=== PATIENT | female | born 1990 | race Two or more races ===

== ENCOUNTER 2017-05-10 17:04 | Emergency (ER) | payer SELFPAY ==
--- NOTE | 2017-05-10 17:36 | EDM.PDOC ---
ED HPI GENERAL MEDICAL PROBLEM - General Chief Complaint: Respiratory Problem Stated Complaint: SOB Time Seen by Provider: 05/10/17 17:27 - History of Present Illness INITIAL COMMENTS - FREE TEXT/NARRATIVE: 27-year-old female presents emergency room generally feeling poor. She has had really severe nausea and vomiting for the last 2-3 days she has developed lower rib discomfort on the left side especially that makes it painful to take a deep breath and. She's had occasional loose stool. She's had no burning or frequency with urination with vomiting she's developed significant neck discomfort and a headache. She's been chilled but they have not had a a thermometer at home. The patient is been unable unable to sleep the last 2 nights because of nausea and vomiting. Abdominal Pain Score (Numeric/FACES): 8 - Related Data Allergies Allergy/AdvReac Type Severity Reaction Status Date / Time No Known Allergies Allergy Verified 05/10/17 17:23 Home Meds: Home Meds Ondansetron [Zofran ODT] 4 mg PO Q6H PRN #15 tab.dis 05/10/17 [Rx] Potassium Chloride [Klor-Con M20] 20 meq PO Q8H #11 tab.er 05/10/17 [Rx] ED ROS GENERAL - Review of Systems Review Of Systems: See Below Constitutional: Reports: Fever, Chills, Decreased Appetite. Denies: Diaphoresis HEENT: Reports: No Symptoms Respiratory: Reports: No Symptoms, Pleuritic Chest Pain (Mostly on the left lower rib margin otherwise deep breathing it hasn't caused any chest pain just worsening abdominal pain) Cardiovascular: Reports: No Symptoms GI/Abdominal: Reports: Abdominal Pain, Diarrhea, Nausea, Vomiting : Reports: No Symptoms, Other (Is having her period now) Musculoskeletal: Reports: Other (He is generally achy all over) Skin: Reports: No Symptoms Neurological: Reports: No Symptoms Psychiatric: Reports: No Symptoms ED EXAM, GENERAL - Physical Exam Exam: See Below Exam Limited By: No Limitations General Appearance: Alert, Anxious Eye Exam: Bilateral Eye: Normal Inspection Ears: Normal External Exam, Normal Canal, Hearing Grossly Normal, Normal TMs Nose: Normal Inspection, Normal Mucosa, No Blood Throat/Mouth: Normal Inspection, Normal Lips, Normal Teeth, Normal Gums, Normal Oropharynx, Normal Voice, No Airway Compromise, Other (Semi-dry mucous membranes ) Head: Atraumatic, Normocephalic Neck: Tender Lateral, Other (She really does not have any nuchal rigidity has significant muscle tightness in the area bilaterally extending into her shoulders and up into the base of her skull). No: Lymphadenopathy (L), Lymphadenopathy (R), Tender Midline, Thyromegaly Respiratory/Chest: No Respiratory Distress, Lungs Clear, Normal Breath Sounds Cardiovascular: Regular Rate, Rhythm, No Edema, No Murmur GI/Abdominal: Normal Bowel Sounds, Soft, Other (Marked abdominal wall musculature discomfort especially on the left side no tenderness with deep palpation no rigidity rebound or guarding noted) Back Exam: Normal Inspection. No: CVA Tenderness (L), CVA Tenderness (R), Paraspinal Tenderness, Vertebral Tenderness Extremities: Normal Inspection, No Pedal Edema Psychiatric: Anxious (Stated improve after control of her nausea vomiting and IV fluids and Toradol) Skin Exam: Warm, Dry, Intact Course - Vital Signs Last Recorded V/S: Last Vital Signs Temp 36.5 C 05/10/17 17: Pulse 90 05/10/17 17:18 Resp 26 H 05/10/17 17:18 BP 113/79 05/10/17 17:18 Pulse Ox 100 05/10/17 17:18 - Orders/Labs/Meds Labs: Laboratory Tests 05/10/17 05/10/17 Range/Units 17:50 17:50 WBC 4.19 (3.98-10.04) K/mm3 RBC 4.76 (3.98-5.22) M/mm3 Hgb 12.5 (11.2-15.7) gm/L Hct 38.0 (34.1-44.9) % MCV 79.8 (79.4-94.8) fl MCH 26.3 (25.6-32.2) pg MCHC 32.9 (32.2-35.5) g/dl RDW Std Deviation 41.0 (36.4-46.3) fL Plt Count 176 L (182-369) K/mm3 MPV 9.7 (9.4-12.3) fl Neutrophils % (Manual) 41 (40-60) % Band Neutrophils % 0 (0-10) % Lymphocytes % (Manual) 55 H (20-40) % Atypical Lymphs % 0 % Monocytes % (Manual) 3 (2-10) % Eosinophils % (Manual) 1 (0.7-5.8) % Basophils % (Manual) 0 L (0.1-1.2) Platelet Estimate Adequate Plt Morphology Comment Normal RBC Morph Comment Normal Sodium 141 (136-145) mEq/L Potassium 2.9 L (3.5-5.1) mEq/L Chloride 100 (98-107) mEq/L Carbon Dioxide 26 (21-32) mEq/L Anion Gap 17.9 H (5-15) BUN 6 L (7-18) mg/dL Creatinine 0.6 (0.55-1.02) mg/dL Est Cr Clr Drug Dosing 119.47 mL/min Estimated GFR (MDRD) > 60 (>60) mL/min BUN/Creatinine Ratio 10.0 L (14-18) Glucose 102 (74-106) mg/dL Calcium 9.2 (8.5-10.1) mg/dL Total Bilirubin 0.3 (0.2-1.0) mg/dL AST 35 (15-37) U/L ALT 54 (14-59) U/L Alkaline Phosphatase 58 (46-116) U/L Total Protein 8.2 (6.4-8.2) g/dl Albumin 3.8 (3.4-5.0) g/dl Globulin 4.4 gm/dL Albumin/Globulin Ratio 0.9 L (1-2) Lipase 131 (73-393) U/L Meds: Medications Discontinued Medications Generic Name Dose Route Start Last Admin Trade Name Freq PRN Reason Stop Dose Admin Lactated Ringer's 1,000 mls @ 999 mls/hr 05/10/17 17:37 05/10/17 17:51 Ringers, Lactated IV 05/10/17 18:37 999 mls/hr .BOLUS ONE Administration Lactated Ringer's 1,000 mls @ 999 mls/hr 05/10/17 17:37 Ringers, Lactated IV 05/10/17 18:37 .BOLUS ONE Lactated Ringer's Confirm 05/10/17 19:13 05/10/17 19:44 Ringers, Lactated Administered 05/10/17 19:14 Not Given Dose 1,000 mls @ as directed .ROUTE .STK-MED ONE Lactated Ringer's 1,000 mls @ 1,000 mls/hr 05/10/17 19:11 05/10/17 19:14 Ringers, Lactated IV 05/10/17 20:10 1,000 mls/hr .BOLUS ONE Administration Ketorolac Tromethamine 30 mg 05/10/17 19:19 05/10/17 19:39 Toradol IVPUSH 05/10/17 19:20 30 mg ONETIME ONE Administration Ondansetron HCl 4 mg 05/10/17 17:37 Zofran IVPUSH 05/10/17 17:38 ONETIME ONE Ondansetron HCl 4 mg 05/10/17 17:38 05/10/17 17:39 Zofran IVPUSH 05/10/17 17:39 Not Given ONETIME ONE Ondansetron HCl 4 mg 05/10/17 18:11 05/10/17 18:13 Zofran IVPUSH 05/10/17 18:12 4 mg ONETIME ONE Administration Ondansetron HCl 4 mg 05/10/17 18:11 05/10/17 18:14 Zofran IVPUSH 05/10/17 18:12 Not Given ONETIME ONE Potassium Chloride 40 meq 05/10/17 18:24 05/10/17 18:30 Klor-Con M20 PO 05/10/17 18:25 40 meq ONETIME ONE Administration - Re-Assessments/Exams Free Text/Narrative Re-Assessment/Exam: 05/10/17 19:17 His chemistries CBC reviewed this looks very viral. However cannot completely exclude the possibility of meningitis offered LP this is declined at this point. For her discomfort we'll give Toradol and she is getting her second liter of fluids started now. Awaiting urine and hCG she has muscle tightness around her neck and into her shoulders full ability to flex her neck is somewhat limited however it is not worsened by her in a full sitting position with her legs up. 05/10/17 20:43 Patient has had the Toradol and for about 40 minutes she's doing much better she still has some discomfort around her neck but this is better she is breathing much easier and her discomfort by large is significantly better. Her abdominal pain is basically completely resolved. she'll be discharged with ibuprofen instructions prescription for Toradol and a prescription for potassium chloride 05/10/17 20:51 Patient did voice some but there was lots of blood and therefore because of her periods and this was never sent to the lab. 05/10/17 20:55 Departure - Departure Time of Disposition: 20:49 Disposition: Home, Self-Care 01 Clinical Impression: Gastroenteritis, Dehydration, Hypokalemia - Discharge Information Prescriptions: Ondansetron [Zofran ODT] 4 mg PO Q6H PRN #15 tab.dis PRN Reason: Nausea/Vomiting Potassium Chloride [Klor-Con M20] 20 meq PO Q8H #11 tab.er Referrals: PCP,Unobtain [Ordering Only Provider] - Forms: ED Department Discharge Additional Instructions: Return to the emergency room with any questions problems or not significantly doing better in 24 hours. Use ibuprofen for aches and pains take with food use 600-800 mg 3 times daily. He been started on Zofran is to control the nausea and vomiting use this at least one every 6 hours for the next 24 hours and then as needed. You been started on potassium is your potassium is very low take 2 pills this evening around 10:00 and then one pill every 8 hours for the next 3 days. Follow-up in the Hospital clinic if needed and to establish with a regular provider
[2017-05-10] MEDS ORDERED: Ondansetron 4 MG/2 ML SDV IVPUSH ONE ×4 (17:37→18:11)
[2017-05-10] MEDS ORDERED: Lactated Ringers 1,000 ML IV ONE ×3 (17:37→19:11)
[2017-05-10] MEDS ORDERED: Potassium Chloride 20 MEQ Tab.ER PO ONE (18:24)
[2017-05-10] MEDS ORDERED: Lactated Ringers 1,000 ML ONE (19:13)
[2017-05-10] MEDS ORDERED: Ketorolac 30 MG/ML SDV IVPUSH ONE (19:19)
== END 2017-05-10 21:10 | disposition home or self-care (01) ==
LOC: JD.ED 17:04
DX: K52.9 Noninfective gastroenteritis and colitis, unspecified (principal); E86.0 Dehydration; E87.6 Hypokalemia
CPT/HCPCS: 36415; 80053; 83690; 85025; 96361; 96374; 96375; 99285; A9270; J1885; J2405; J7120; 99284

== ENCOUNTER 2017-05-11 07:47 | Emergency (ER) | payer SELFPAY ==
--- NOTE | 2017-05-11 08:06 | EDM.PDOC ---
ED HPI GENERAL MEDICAL PROBLEM - General Chief Complaint: Headache Stated Complaint: UNABLE TO WALK OR TALK Time Seen by Provider: 05/11/17 08:06 Source of Information: Reports: Patient, RN Notes Reviewed - History of Present Illness INITIAL COMMENTS - FREE TEXT/NARRATIVE: 27-year-old female who's been brought in by mother with concern about headache, generalized weakness, speech difficulty. Upon my walking into the room the patient is not verbalizing at all so history is extremely difficult. Not clear at this time when her speech difficulty started. She was evaluated here in the ED last evening for severe headache, neck and back discomfort. Refer to that record for details of that visit. Labs at that time were relatively normal. It appears that neuro status was normal at that time. I see no documentation of speech difficulty last evening. She had been ill about 3-4 days ago with severe vomiting and diarrhea. When evaluated last evening her potassium was very low at 2.9. she was treated with IV fluids, oral potassium and other medications for headache. 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 Headache Pain Score (Numeric/FACES): 10 - Related Data Allergies Allergy/AdvReac Type Severity Reaction Status Date / Time No Known Allergies Allergy Verified 05/11/17 08:02 Home Meds: Home Meds Ondansetron [Zofran ODT] 4 mg PO Q6H PRN #15 tab.dis 05/10/17 [Rx] Potassium Chloride [Klor-Con M20] 20 meq PO Q8H #11 tab.er 05/10/17 [Rx] Past Medical History Gastrointestinal History: Reports: Gastritis, GERD Neurological History: Reports: Headaches, Chronic, Migraines - Infectious Disease History Infectious Disease History: Reports: Chicken Pox, Measles Social & Family History - Tobacco Use Smoking Status *Q: Never Smoker - Caffeine Use Caffeine Use: Reports: None - Recreational Drug Use Recreational Drug Use: No ED ROS GENERAL - Review of Systems Review Of Systems: Unable To Obtain (The information I am getting is from her mother who is able to inform me of past symptoms but difficult to get detailed information on current symptoms) Constitutional: Denies: Fever, Chills, Diaphoresis Cardiovascular: Denies: Chest Pain GI/Abdominal: Reports: Abdominal Pain (Gone), Diarrhea (Patient had severe vomiting 2 and 3 days ago patient severe diarrhea 2 and 3 days ago), Nausea, Vomiting Skin: Reports: No Symptoms Neurological: Reports: Headache, Difficulty Walking (Generalized weakness difficulty walking this morning), Weakness, Change in Speech (Difficulty speaking this morning) - Physical Exam Exam: See Below General Appearance: Anxious (Patient does appear somewhat anxious), Other ( Patient is awake, not verbalizing at time of my initial exam) Eye Exam: Bilateral Eye: PERRL Ears: Normal External Exam Nose: Normal Inspection Throat/Mouth: Normal Inspection, Normal Oropharynx, Other (No swelling, no intraoral injury present) Head Exam: Atraumatic. No: Scalp Swelling, Facial Abrasions, Facial Swelling Neck: Supple, Full Range of Motion. No: Lymphadenopathy (L), Lymphadenopathy (R ) Respiratory/Chest: No Respiratory Distress, Lungs Clear, Normal Breath Sounds Cardiovascular: Regular Rate, Rhythm GI/Abdominal: Soft, Non-Tender. No: Guarding, Rebound Neuro Exam (Abbreviated): Slow to Respond, Other (Patient is awake, aware, she does squeeze fingers bilateral on command, she does speak but words very soft, mostly not recognizable time of my initial exam, no facial droop, hand grasp is weak bilateral but symmetric) Extremities: Normal Inspection, Normal Range of Motion Psychiatric: Flat Affect Skin Exam: Warm, Dry, Normal Color, No Rash Course - Vital Signs Last Recorded V/S: Last Vital Signs Temp 97.9 F 05/11/17 07:57 Pulse 86 05/11/17 07:57 Resp 16 05/11/17 07:57 BP 121/86 05/11/17 07:57 Pulse Ox 96 05/11/17 07:57 - Orders/Labs/Meds Labs: Laboratory Tests 05/11/17 05/11/17 05/11/17 Range/Units 08:00 08:00 08:00 WBC 3.37 L (3.98-10.04) K/mm3 RBC 4.44 (3.98-5.22) M/mm3 Hgb 11.7 (11.2-15.7) gm/L Hct 36.8 (34.1-44.9) % MCV 82.9 (79.4-94.8) fl MCH 26.4 (25.6-32.2) pg MCHC 31.8 L (32.2-35.5) g/dl RDW Std Deviation 44.1 (36.4-46.3) fL Plt Count 170 L (182-369) K/mm3 MPV 10.1 (9.4-12.3) fl Neut % (Auto) 28.2 L (34.0-71.1) % Lymph % (Auto) 55.2 H (19.3-51.7) % [place] % (Auto) 14.5 H (4.7-12.5) % Eos % (Auto) 0.6 L (0.7-5.8) Baso % (Auto) 1.5 H (0.1-1.2) % Neut # (Auto) 0.95 L (1.56-6.13) K/mm3 Lymph # (Auto) 1.86 (1.18-3.74) K/mm3 [place] # (Auto) 0.49 H (0.24-0.36) K/mm3 Eos # (Auto) 0.02 L (0.04-0.36) K/mm3 Baso # (Auto) 0.05 (0.01-0.08) K/mm3 Manual Slide Review Normal smear Sodium 142 (136-145) mEq/L Potassium 3.9 (3.5-5.1) mEq/L Chloride 103 (98-107) mEq/L Carbon Dioxide 26 (21-32) mEq/L Anion Gap 16.9 H (5-15) BUN 5 L (7-18) mg/dL Creatinine 0.6 (0.55-1.02) mg/dL Est Cr Clr Drug Dosing 119.47 mL/min Estimated GFR (MDRD) > 60 (>60) mL/min BUN/Creatinine Ratio 8.3 L (14-18) Glucose 88 (74-106) mg/dL Calcium 8.9 (8.5-10.1) mg/dL Total Bilirubin 0.3 (0.2-1.0) mg/dL AST 30 (15-37) U/L ALT 44 (14-59) U/L Alkaline Phosphatase 53 (46-116) U/L C-Reactive Protein 1.0 (<1.0) mg/dL Total Protein 7.8 (6.4-8.2) g/dl Albumin 3.6 (3.4-5.0) g/dl Globulin 4.2 gm/dL Albumin/Globulin Ratio 0.9 L (1-2) Meds: Medications Discontinued Medications Generic Name Dose Route Start Last Admin Trade Name Gracie PRN Reason Stop Dose Admin Acetaminophen 975 mg 05/11/17 09:34 05/11/17 09:48 Tylenol PO 05/11/17 09:35 975 mg NOW ONE Administration Hydromorphone HCl 0.5 mg 05/11/17 08:29 05/11/17 08:37 Dilaudid IVPUSH 05/11/17 08:30 0.5 mg ONETIME ONE Administration Sodium Chloride 500 mls @ 999 mls/hr 05/11/17 08:27 05/11/17 08:48 Normal Saline IV 05/11/17 08:57 999 mls/hr .BOLUS ONE Administration Lorazepam 0.5 mg 05/11/17 08:27 05/11/17 08:49 Ativan IVPUSH 05/11/17 08:28 0.5 mg ONETIME ONE Administration Metoclopramide HCl 5 mg 05/11/17 09:34 05/11/17 09:46 Reglan IVPUSH 05/11/17 09:35 5 mg ONETIME ONE Administration Sodium Chloride 10 ml 05/11/17 08:29 05/11/17 08:50 Saline Flush FLUSH 10 ml ASDIRECTED PRN Administration Keep Vein Open - Re-Assessments/Exams Free Text/Narrative Re-Assessment/Exam: 05/12/17 13:34. Initial exam, especially neuro quite abnormal as documented, mother states she still has Song, neck and back discomfort. Has not been vomiting since last evening, had been vomiting with diarrhea several days ago. Treated initially with some IV fluid, zofran, dilaudid, ativan. With that she appeared to be resting comfortably while awaiting labs and after head CT. Labs came back relatively normal, WBC normal, CRP 0.2. Head CT normal. Speech started improving but still quite slow to respond, not showing normal alertness or affect. We were able to get an MRI slot for around 12 noon so MRI of head ordered as well. MRI also normal for head, some mild sinus findings. Patient more alert, verbalizing much better at [id number]. At that point needed to make a decision to transfer for further evaluation or allow to go home. We got her up to walk and she did very well with that so discharged home with to care of mother who is comfortable with that option. Discharge instr. as documented. Departure - Departure Time of Disposition: 14:37 Disposition: Home, Self-Care 01 Condition: Fair Clinical Impression: Migraine, Dehydration, Difficulty with speech - Discharge Information Instructions: Migraine Headache, [id number], Dehydration, Adult, [id number] Referrals: PCP,None [Primary Care Provider] - Forms: ED Department Discharge Additional Instructions: Rest, clear liquids until this evening, then very careful bland diet as tolerated, Zofran if needed for any further nausea or vomiting. You may alternate Tylenol and ibuprofen if needed for further headache, neck or back discomfort. Follow-up at our [facility] medical clinic tomorrow for recheck. Call [phone] for appointment. Turn the ED if symptoms worsening in any way.
[2017-05-11] MEDS: HYDROmorphone 0.5 MG/0.5 ML SYRINGE IVPUSH ONE (08:37)
[2017-05-11] MEDS: Sodium Chloride 0.9% 500 ML IV ONE (08:48)
[2017-05-11] MEDS: LORazepam 2 MG/ML MDV IVPUSH ONE (08:49)
[2017-05-11] MEDS: Sodium Chloride 0.9% 10 ML Syringe FLUSH PRN (08:50)
--- NOTE | 2017-05-11 09:05 | CT ---
Head CT Technique: Multiple axial sections through the brain were obtained. Intravenous contrast was not utilized. Comparison: No previous intracranial imaging. Findings: Ventricles along with basal cisterns and sulci over the convexities are within normal limits for the patient's age. No abnormal parenchymal densities are seen. No evidence of intracranial hemorrhage. No midline shift or mass effect is seen. Bone window settings were reviewed which shows no acute calvarial abnormality. There is moderate mucosal thickening is noted within the ethmoid sinuses with air-fluid levels compatible with acute sinusitis. Impression: 1. Mucosal thickening and air-fluid levels within the ethmoid sinuses compatible with acute sinusitis. 2. No additional abnormality is appreciated on noncontrast head CT study. Diagnostic code #3
[2017-05-11] MEDS: Metoclopramide 10 MG/2 ML SDV IVPUSH ONE (09:46)
[2017-05-11] MEDS: Acetaminophen 325 MG Tab PO ONE (09:48)
--- NOTE | 2017-05-11 12:40 | MR ---
MRI brain Technique: T1 sagittal; T2, T2 FLAIR, T1, T2 gradient echo and diffusion axial; T1 FLAIR coronal images were obtained of the brain. Findings: Retention cyst is seen within the inferior left maxillary sinus measuring about 1.7 cm. Small air-fluid level seen within both maxillary sinuses. Mild mucosal thickening is seen within the right maxillary sinus. More prominent mucosal thickening is seen within the ethmoid and frontal sinuses with air-fluid levels. Ventricles along with basal cisterns and sulci over the convexities are within normal limits for the patient's age. Normal signal void is seen within the major cerebral arteries within the skull base. No abnormal signal is seen within the brain parenchyma. No midline shift or mass effect is seen. No acute diffusion abnormalities are seen. Impression: 1. Sinus disease as described above. 2. No intracranial abnormality is seen. 3. No acute diffusion abnormalities are identified. Diagnostic code #3
== END 2017-05-11 14:50 | disposition home or self-care (01) ==
LOC: JD.ED 07:47
DX: G43.909 Migraine, unspecified, not intractable, without status migrainosus (principal); E86.0 Dehydration; R47.9 Unspecified speech disturbances
CPT/HCPCS: 36415; 70450; 70551; 80053; 85025; 86140; 93005; 96361; 96374; 96375; 99285; A9270; J1170; J2060; J2765; J7040; J7050

== ENCOUNTER 2017-09-26 16:48 | Emergency (ER) | payer MEDICAID ==
--- NOTE | 2017-09-26 17:14 | EDM.PDOC ---
<Leila Painter - Last Filed: 09/26/17 18:39> ED HPI GENERAL MEDICAL PROBLEM - General Chief Complaint: Abdominal Pain Stated Complaint: ABDOMINAL PAINS Time Seen by Provider: 09/26/17 17:09 - History of Present Illness INITIAL COMMENTS - FREE TEXT/NARRATIVE: Patient is brought in today by her mother for complaint of RUQ and epigastric pain. Pain began twelve hours ago and woke her up from sleeping. Her pain has increased in severity over the last four hours. Patient began vomiting two hours ago and has vomited 5-6x. She has had one episode of loose stool prior to her arrival. Patient tried taking OTC medication for GERD, but this did not alleviate her pain. She describes the pain as a burning sensation. Nothing alleviates the pain. Lying supine/prone increases pain. Associated symptoms include nausea, vomiting, diarrhea, appetite loss, and abdominal pain and tenderness. Patient denies fever, melena, dysuria, urinary urgency/ frequency, hematuria, alcohol use, or drug use. Patient had an EGD in [place] last year and was told that she has gastritis. Onset: Sudden Onset Date: 09/26/17 Onset Time: 05:30 Duration: Getting Worse Location: Reports: Abdomen (RUQ and epigastrum ) Quality: Reports: Burning Severity: Severe Improves with: Reports: None Worsens with: Reports: Other (lying prone or supine) Associated Symptoms: Reports: Loss of Appetite, Nausea/Vomiting. Denies: Fever/ Chills Treatments CORE CARRIER: Reports: Other Medication(s) (OTC heartburn medication) - Related Data Allergies Allergy/AdvReac Type Severity Reaction Status Date / Time No Known Allergies Allergy Verified 09/26/17 17:02 Home Meds: Home Meds Ondansetron [Zofran ODT] 4 mg PO Q6H PRN #15 tab.dis 05/10/17 [Rx] Potassium Chloride [Klor-Con M20] 20 meq PO Q8H #11 tab.er 05/10/17 [Rx] ED ROS GENERAL - Review of Systems Constitutional: Reports: No Symptoms, Diaphoresis. Denies: Fever, Chills Respiratory: Denies: Shortness of Breath, Cough Cardiovascular: Denies: Chest Pain GI/Abdominal: Reports: Abdominal Pain, Anorexia, Diarrhea, Decreased Appetite, Nausea, Vomiting. Denies: Black Stool, Bloody Stool, Distension : Denies: Dysuria, Flank Pain, Frequency, Pain, Urgency ED EXAM, GI/ABD - Physical Exam Exam Limited By: No Limitations General Appearance: Alert, Anxious, Moderate Distress, Active Emesis Respiratory/Chest: Lungs Clear, Normal Breath Sounds. No: Crackles, Rhonchi, Wheezing Cardiovascular: Regular Rate, Rhythm GI/Abdominal Exam: Normal Bowel Sounds, Soft, Tender. No: Distended, Guarding, Rigid, Rebound Course - Vital Signs Last Recorded V/S: Last Vital Signs Temp 97.6 F 09/26/17 16:57 Pulse 73 09/26/17 16:57 Resp 18 09/26/17 16:57 BP Pulse Ox 98 09/26/17 16:57 - Orders/Labs/Meds Orders: Active Orders 24 hr Category Date Time Status Abdomen Pelvis w Cont [CT] Stat Exams 09/26/17 19:12 Taken Sodium Chloride 0.9% [Saline Flush] Med 09/26/17 20:44 Active 10 ml FLUSH ONETIME PRN Medication Orders Sodium Chloride (Saline Flush) 10 ml FLUSH ONETIME PRN PRN Reason: IV FLUSH Last Admin: 09/26/17 20:51 Dose: 10 ml Labs: Laboratory Tests 09/26/17 09/26/17 09/26/17 Range/Units 17:10 17:10 17:10 WBC 11.65 H (3.98-10.04) K/mm3 RBC 4.65 (3.98-5.22) M/mm3 Hgb 12.4 (11.2-15.7) gm/L Hct 37.5 (34.1-44.9) % MCV 80.6 (79.4-94.8) fl MCH 26.7 (25.6-32.2) pg MCHC 33.1 (32.2-35.5) g/dl RDW Std Deviation 40.8 (36.4-46.3) fL Plt Count 289 (182-369) K/mm3 MPV 9.7 (9.4-12.3) fl Neut % (Auto) 86.8 H (34.0-71.1) % Lymph % (Auto) 8.8 L (19.3-51.7) % [place] % (Auto) 4.1 L (4.7-12.5) % Eos % (Auto) 0 L (0.7-5.8) Baso % (Auto) 0.1 (0.1-1.2) % Neut # (Auto) 10.12 H (1.56-6.13) K/mm3 Lymph # (Auto) 1.02 L (1.18-3.74) K/mm3 [place] # (Auto) 0.48 H (0.24-0.36) K/mm3 Eos # (Auto) 0.00 L (0.04-0.36) K/mm3 Baso # (Auto) 0.01 (0.01-0.08) K/mm3 Manual Slide Review Abnormal smear Sodium 138 (136-145) mEq/L Potassium 3.5 (3.5-5.1) mEq/L Chloride 102 (98-107) mEq/L Carbon Dioxide 23 (21-32) mEq/L Anion Gap 16.5 H (5-15) BUN 8 (7-18) mg/dL Creatinine 0.8 (0.55-1.02) mg/dL Est Cr Clr Drug Dosing 89.60 mL/min Estimated GFR (MDRD) > 60 (>60) mL/min BUN/Creatinine Ratio 10.0 L (14-18) Glucose 127 H (74-106) mg/dL Calcium 9.8 (8.5-10.1) mg/dL Total Bilirubin 0.4 (0.2-1.0) mg/dL AST 22 (15-37) U/L ALT 22 (14-59) U/L Alkaline Phosphatase 64 (46-116) U/L Total Protein 8.7 H (6.4-8.2) g/dl Albumin 4.3 (3.4-5.0) g/dl Globulin 4.4 gm/dL Albumin/Globulin Ratio 1.0 (1-2) Lipase (73-393) U/L HCG, Qual Negative (NEGATIVE) Urine Color (Yellow) Urine Appearance (Clear) Urine pH (5.0-8.0) Ur Specific [place] (1.005-1.030) Urine Protein (Negative) Urine Glucose (UA) (Negative) Urine Ketones (Negative) Urine Occult Blood (Negative) Urine Nitrite (Negative) Urine Bilirubin (Negative) Urine Urobilinogen (0.2-1.0) Ur Leukocyte Esterase (Negative) Urine RBC (0-5) /hpf Urine WBC (0-5) /hpf Ur Epithelial Cells (0-5) /hpf Urine Bacteria (FEW) /hpf Urine Mucus (FEW) /hpf H. pylori IgG Antibody (NEGATIVE) 09/26/17 09/26/17 09/26/17 Range/Units 17:10 17:10 21:15 WBC (3.98-10.04) K/mm3 RBC (3.98-5.22) M/mm3 Hgb (11.2-15.7) gm/L Hct (34.1-44.9) % MCV (79.4-94.8) fl MCH (25.6-32.2) pg MCHC (32.2-35.5) g/dl RDW Std Deviation (36.4-46.3) fL Plt Count (182-369) K/mm3 MPV (9.4-12.3) fl Neut % (Auto) (34.0-71.1) % Lymph % (Auto) (19.3-51.7) % [place] % (Auto) (4.7-12.5) % Eos % (Auto) (0.7-5.8) Baso % (Auto) (0.1-1.2) % Neut # (Auto) (1.56-6.13) K/mm3 Lymph # (Auto) (1.18-3.74) K/mm3 [place] # (Auto) (0.24-0.36) K/mm3 Eos # (Auto) (0.04-0.36) K/mm3 Baso # (Auto) (0.01-0.08) K/mm3 Manual Slide Review Sodium (136-145) mEq/L Potassium (3.5-5.1) mEq/L Chloride (98-107) mEq/L Carbon Dioxide (21-32) mEq/L Anion Gap (5-15) BUN (7-18) mg/dL Creatinine (0.55-1.02) mg/dL Est Cr Clr Drug Dosing mL/min Estimated GFR (MDRD) (>60) mL/min BUN/Creatinine Ratio (14-18) Glucose (74-106) mg/dL Calcium (8.5-10.1) mg/dL Total Bilirubin (0.2-1.0) mg/dL AST (15-37) U/L ALT (14-59) U/L Alkaline Phosphatase (46-116) U/L Total Protein (6.4-8.2) g/dl Albumin (3.4-5.0) g/dl Globulin gm/dL Albumin/Globulin Ratio (1-2) Lipase 108 (73-393) U/L HCG, Qual (NEGATIVE) Urine Color Yellow (Yellow) Urine Appearance Turbid H (Clear) Urine pH 7.0 (5.0-8.0) Ur Specific [place] 1.025 (1.005-1.030) Urine Protein 1+ H (Negative) Urine Glucose (UA) Negative (Negative) Urine Ketones 2+ H (Negative) Urine Occult Blood Trace-intact H (Negative) Urine Nitrite Negative (Negative) Urine Bilirubin Negative (Negative) Urine Urobilinogen 1.0 (0.2-1.0) Ur Leukocyte Esterase Negative (Negative) Urine RBC 0-5 (0-5) /hpf Urine WBC 0-5 (0-5) /hpf Ur Epithelial Cells 5-10 H (0-5) /hpf Urine Bacteria Few (FEW) /hpf Urine Mucus Not seen (FEW) /hpf H. pylori IgG Antibody Negative (NEGATIVE) Meds: Medications Generic Name Dose Route Start Last Admin Trade Name Fresherrell PRN Reason Stop Dose Admin Sodium Chloride 10 ml 09/26/17 20:44 09/26/17 20:51 Saline Flush FLUSH 10 ml ONETIME PRN Administration IV FLUSH Discontinued Medications Generic Name Dose Route Start Last Admin Trade Name Gracie PRN Reason Stop Dose Admin Diatrizoate Meglum/Diatrizoate Sod 120 ml 09/26/17 20:44 09/26/17 20:51 Gastrografin 37% PO 09/26/17 20:45 90 ml ONETIME ONE Administration Famotidine 20 mg 09/26/17 18:13 09/26/17 18:24 Pepcid IVPUSH 09/26/17 18:14 20 mg ONETIME ONE Administration Hydromorphone HCl 0.5 mg 09/26/17 17:41 09/26/17 17:49 Dilaudid IVPUSH 09/26/17 17:42 0.5 mg ONETIME ONE Administration Sodium Chloride 1,000 mls @ 999 mls/hr 09/26/17 17:41 09/26/17 17:48 Normal Saline IV 09/26/17 18:41 999 mls/hr ONETIME ONE Administration Promethazine HCl 25 mg/ Sodium 51 mls @ 100 mls/hr 09/26/17 18:12 09/26/17 18 :26 Chloride IV 09/26/17 18:42 100 mls/hr ONETIME ONE Administration Iopamidol 150 ml 09/26/17 20:44 09/26/17 20:51 Isovue-300 (61%) IVPUSH 09/26/17 20:45 80 ml ONETIME ONE Administration Ondansetron HCl 4 mg 09/26/17 17:41 09/26/17 17:48 Zofran IVPUSH 09/26/17 17:42 4 mg ONETIME ONE Administration Ondansetron HCl 4 mg 09/26/17 20:01 09/26/17 20:23 Zofran IVPUSH 09/26/17 20:02 4 mg ONETIME STA Administration Departure - Departure Disposition: Home, Self-Care 01 Clinical Impression: Cholecystitis Abdominal pain Qualifiers: Abdominal location: right upper quadrant Qualified Code(s): R10.11 - Right upper quadrant pain - Discharge Information Instructions: Abdominal Pain, Adult, [id number], Nausea and Vomiting, Adult, [id number], Cholecystitis, [id number] Referrals: PCP,None [Primary Care Provider] - Forms: ED Department Discharge Additional Instructions: Clear liquid diet for the next 24 hours then to liquid diet then to bland foods only for 3-4 days as discussed. Pepcid 20mg 2 times daily Zofran as needed for nausea; norco for pain- prescriptions written Follow up with General Surgeon this week for further evaluation and recommendations Return to ER if pain worsens, fever, unable to keep liquids down with nausea medications or other questions/concerns. - My Orders Last 24 Hours: My Active Orders 09/26/17 20:44 Sodium Chloride 0.9% [Saline Flush] 10 ml FLUSH ONETIME PRN - Assessment/Plan Last 24 Hours: My Active Orders 09/26/17 20:44 Sodium Chloride 0.9% [Saline Flush] 10 ml FLUSH ONETIME PRN <Negrita Andino - Last Filed: 09/26/17 22:39> ED HPI GENERAL MEDICAL PROBLEM - General Source of Information: Reports: Patient History Limitations: Reports: No Limitations Right Abdomen Pain Score (Numeric/FACES): 10 Past Medical History Gastrointestinal History: Reports: Gastritis, GERD Neurological History: Reports: Headaches, Chronic, Migraines - Infectious Disease History Infectious Disease History: Reports: Chicken Pox, Measles Social & Family History - Caffeine Use Caffeine Use: Reports: None ED ROS GENERAL - Review of Systems Review Of Systems: See Below ED EXAM, GI/ABD - Physical Exam Exam: See Below Eyes: Bilateral: EOMI Ears: Hearing Grossly Normal Nose: Normal Inspection Throat/Mouth: Normal Inspection, Normal Lips, Normal Teeth, Normal Voice, No Airway Compromise Head: Atraumatic, Normocephalic Neck: Normal Inspection (Female) Exam: Deferred Rectal (Female) Exam: Deferred Back Exam: Normal Inspection Extremities: Normal Inspection, No Pedal Edema, Normal Capillary Refill Neurological: Alert, Oriented, CN II-XII Intact Psychiatric: Normal Affect, Normal Mood, Anxious Skin Exam: Warm, Dry, Intact Comments: I have seen and examined patient and agree with PA StudentLeila's examination and above noted HPI/ROS. Course - Orders/Labs/Meds Labs: Laboratory Tests 09/26/17 09/26/17 09/26/17 Range/Units 17:10 17:10 17:10 WBC 11.65 H (3.98-10.04) K/mm3 RBC 4.65 (3.98-5.22) M/mm3 Hgb 12.4 (11.2-15.7) gm/L Hct 37.5 (34.1-44.9) % MCV 80.6 (79.4-94.8) fl MCH 26.7 (25.6-32.2) pg MCHC 33.1 (32.2-35.5) g/dl RDW Std Deviation 40.8 (36.4-46.3) fL Plt Count 289 (182-369) K/mm3 MPV 9.7 (9.4-12.3) fl Neut % (Auto) 86.8 H (34.0-71.1) % Lymph % (Auto) 8.8 L (19.3-51.7) % [place] % (Auto) 4.1 L (4.7-12.5) % Eos % (Auto) 0 L (0.7-5.8) Baso % (Auto) 0.1 (0.1-1.2) % Neut # (Auto) 10.12 H (1.56-6.13) K/mm3 Lymph # (Auto) 1.02 L (1.18-3.74) K/mm3 [place] # (Auto) 0.48 H (0.24-0.36) K/mm3 Eos # (Auto) 0.00 L (0.04-0.36) K/mm3 Baso # (Auto) 0.01 (0.01-0.08) K/mm3 Manual Slide Review Abnormal smear Sodium 138 (136-145) mEq/L Potassium 3.5 (3.5-5.1) mEq/L Chloride 102 (98-107) mEq/L Carbon Dioxide 23 (21-32) mEq/L Anion Gap 16.5 H (5-15) BUN 8 (7-18) mg/dL Creatinine 0.8 (0.55-1.02) mg/dL Est Cr Clr Drug Dosing 89.60 mL/min Estimated GFR (MDRD) > 60 (>60) mL/min BUN/Creatinine Ratio 10.0 L (14-18) Glucose 127 H (74-106) mg/dL Calcium 9.8 (8.5-10.1) mg/dL Total Bilirubin 0.4 (0.2-1.0) mg/dL AST 22 (15-37) U/L ALT 22 (14-59) U/L Alkaline Phosphatase 64 (46-116) U/L Total Protein 8.7 H (6.4-8.2) g/dl Albumin 4.3 (3.4-5.0) g/dl Globulin 4.4 gm/dL Albumin/Globulin Ratio 1.0 (1-2) Lipase (73-393) U/L HCG, Qual Negative (NEGATIVE) Urine Color (Yellow) Urine Appearance (Clear) Urine pH (5.0-8.0) Ur Specific [place] (1.005-1.030) Urine Protein (Negative) Urine Glucose (UA) (Negative) Urine Ketones (Negative) Urine Occult Blood (Negative) Urine Nitrite (Negative) Urine Bilirubin (Negative) Urine Urobilinogen (0.2-1.0) Ur Leukocyte Esterase (Negative) Urine RBC (0-5) /hpf Urine WBC (0-5) /hpf Ur Epithelial Cells (0-5) /hpf Urine Bacteria (FEW) /hpf Urine Mucus (FEW) /hpf H. pylori IgG Antibody (NEGATIVE) 09/26/17 09/26/17 09/26/17 Range/Units 17:10 17:10 21:15 WBC (3.98-10.04) K/mm3 RBC (3.98-5.22) M/mm3 Hgb (11.2-15.7) gm/L Hct (34.1-44.9) % MCV (79.4-94.8) fl MCH (25.6-32.2) pg MCHC (32.2-35.5) g/dl RDW Std Deviation (36.4-46.3) fL Plt Count (182-369) K/mm3 MPV (9.4-12.3) fl Neut % (Auto) (34.0-71.1) % Lymph % (Auto) (19.3-51.7) % [place] % (Auto) (4.7-12.5) % Eos % (Auto) (0.7-5.8) Baso % (Auto) (0.1-1.2) % Neut # (Auto) (1.56-6.13) K/mm3 Lymph # (Auto) (1.18-3.74) K/mm3 [place] # (Auto) (0.24-0.36) K/mm3 Eos # (Auto) (0.04-0.36) K/mm3 Baso # (Auto) (0.01-0.08) K/mm3 Manual Slide Review Sodium (136-145) mEq/L Potassium (3.5-5.1) mEq/L Chloride (98-107) mEq/L Carbon Dioxide (21-32) mEq/L Anion Gap (5-15) BUN (7-18) mg/dL Creatinine (0.55-1.02) mg/dL Est Cr Clr Drug Dosing mL/min Estimated GFR (MDRD) (>60) mL/min BUN/Creatinine Ratio (14-18) Glucose (74-106) mg/dL Calcium (8.5-10.1) mg/dL Total Bilirubin (0.2-1.0) mg/dL AST (15-37) U/L ALT (14-59) U/L Alkaline Phosphatase (46-116) U/L Total Protein (6.4-8.2) g/dl Albumin (3.4-5.0) g/dl Globulin gm/dL Albumin/Globulin Ratio (1-2) Lipase 108 (73-393) U/L HCG, Qual (NEGATIVE) Urine Color Yellow (Yellow) Urine Appearance Turbid H (Clear) Urine pH 7.0 (5.0-8.0) Ur Specific [place] 1.025 (1.005-1.030) Urine Protein 1+ H (Negative) Urine Glucose (UA) Negative (Negative) Urine Ketones 2+ H (Negative) Urine Occult Blood Trace-intact H (Negative) Urine Nitrite Negative (Negative) Urine Bilirubin Negative (Negative) Urine Urobilinogen 1.0 (0.2-1.0) Ur Leukocyte Esterase Negative (Negative) Urine RBC 0-5 (0-5) /hpf Urine WBC 0-5 (0-5) /hpf Ur Epithelial Cells 5-10 H (0-5) /hpf Urine Bacteria Few (FEW) /hpf Urine Mucus Not seen (FEW) /hpf H. pylori IgG Antibody Negative (NEGATIVE) Meds: Medications Generic Name Dose Route Start Last Admin Trade Name Freq PRN Reason Stop Dose Admin Sodium Chloride 10 ml 09/26/17 20:44 09/26/17 20:51 Saline Flush FLUSH 10 ml ONETIME PRN Administration IV FLUSH Discontinued Medications Generic Name Dose Route Start Last Admin Trade Name Freq PRN Reason Stop Dose Admin Diatrizoate Meglum/Diatrizoate Sod 120 ml 09/26/17 20:44 09/26/17 20:51 Gastrografin 37% PO 09/26/17 20:45 90 ml ONETIME ONE Administration Famotidine 20 mg 09/26/17 18:13 09/26/17 18:24 Pepcid IVPUSH 09/26/17 18:14 20 mg ONETIME ONE Administration Hydromorphone HCl 0.5 mg 09/26/17 17:41 09/26/17 17:49 Dilaudid IVPUSH 09/26/17 17:42 0.5 mg ONETIME ONE Administration Sodium Chloride 1,000 mls @ 999 mls/hr 09/26/17 17:41 09/26/17 17:48 Normal Saline IV 09/26/17 18:41 999 mls/hr ONETIME ONE Administration Promethazine HCl 25 mg/ Sodium 51 mls @ 100 mls/hr 09/26/17 18:12 09/26/17 18 :26 Chloride IV 09/26/17 18:42 100 mls/hr ONETIME ONE Administration Iopamidol 150 ml 09/26/17 20:44 09/26/17 20:51 Isovue-300 (61%) IVPUSH 09/26/17 20:45 80 ml ONETIME ONE Administration Ondansetron HCl 4 mg 09/26/17 17:41 09/26/17 17:48 Zofran IVPUSH 09/26/17 17:42 4 mg ONETIME ONE Administration Ondansetron HCl 4 mg 09/26/17 20:01 09/26/17 20:23 Zofran IVPUSH 09/26/17 20:02 4 mg ONETIME STA Administration - Radiology Interpretation CT Results Date: 09/26/17 ([facility] report: single laminated gallstone, no definite sign of cholecystitis. Enlarged right ovary containing a corpus luteum cyst. Small amt of free fluid in cul-de-sac could be from rupture of ovarian cyst or recent ovulation) - Re-Assessments/Exams Free Text/Narrative Re-Assessment/Exam: 09/26/17 22:32 Reviewed symptoms, labs, CT scan reports with mother. Patient sleeping/resting comfortably now. Will DC home with prompt follow up with Surgeon for further eval/recommendations- see DC instructions Departure - Departure Time of Disposition: 22:33 Condition: Good
[2017-09-26] MEDS ORDERED: Sodium Chloride 0.9% 1,000 ML IV ONE (17:41)
[2017-09-26] MEDS ORDERED: HYDROmorphone 0.5 MG/0.5 ML SYRINGE IVPUSH ONE ×2 (17:41→22:36)
[2017-09-26] MEDS ORDERED: Ondansetron 4 MG/2 ML SDV IVPUSH ONE ×2 (17:41→22:36)
[2017-09-26] MEDS ORDERED: Promethazine 25 MG in Sodium Chloride 0.9% 50 ML IV ONE (18:12)
[2017-09-26] MEDS ORDERED: Famotidine 20 MG/2 ML SDV IVPUSH ONE (18:13)
[2017-09-26] MEDS ORDERED: Ondansetron 4 MG/2 ML SDV IVPUSH STA (20:01)
[2017-09-26] MEDS ORDERED: Sodium Chloride 0.9% 10 ML Syringe FLUSH PRN (20:44)
[2017-09-26] MEDS ORDERED: Iopamidol 612 MG/ML 150 ML Bottle IVPUSH ONE (20:44)
[2017-09-26] MEDS ORDERED: Diatrizoate Meglumine/Diatrizoate Sodium 37% 120 ML Bottle PO ONE (20:44)
[2017-09-26] MEDS ORDERED: Acetaminophen/HYDROcodone 325-5 MG Tab PO ONE (22:37)
[2017-09-26] MEDS ORDERED: Ondansetron 4 MG Tab.DIS PO ONE (22:37)
--- NOTE | 2017-09-27 08:18 | CT ---
CT abdomen and pelvis Technique: Multiple axial sections were obtained from above the dome of the diaphragm inferiorly to the pubic symphysis. Intravenous contrast was utilized. No oral contrast has been given. Delayed images were also obtained through the abdomen and pelvis. Comparison: No prior abdominal imaging. Findings: Visualized lung bases are clear. Liver shows no focal parenchymal abnormality. Gallstone felt to be present within the gallbladder measuring approximately 1.5 cm. Spleen appears within normal limits. Pancreas shows no discrete abnormality. Adrenal glands show no nodule. Aorta shows no aneurysmal dilatation. No retroperitoneal adenopathy or mesenteric abnormalities are seen. Kidneys show symmetric contrast enhancement without hydronephrosis or mass. Small amount of free fluid seen around the right ovary and within the cul-de-sac. Small enhancing collapsing cyst noted within the right ovary most likely physiologic. No additional findings seen within the pelvis. No inflammatory change is seen. Appendix is seen and appears normal in size. Bone window settings were reviewed which show scoliosis within the spine. Impression: 1. Free fluid within the pelvis with findings compatible with collapsing physiologic cyst within the right ovary. Free fluid may relate to cyst rupture or slightly excessive fluid from ovulation. 2. Gallstone is seen within the gallbladder. 3. No additional abnormality is seen on CT study of the abdomen and pelvis. Diagnostic code #2 I agree with preliminary report issued by [facility] ([facility] preliminary report dictated on 09/26/17, 11:11 PM Central Time)
== END 2017-09-26 22:50 | disposition home or self-care (01) ==
LOC: JD.ED 16:48
DX: K81.9 Cholecystitis, unspecified (principal); Z79.899 Other long term (current) drug therapy
CPT/HCPCS: 36415; 74177; 80053; 81001; 83690; 84703; 85025; 86677; 96361; 96365; 96375; 96376; 99284; A9270; J1170; J2405; J2550; J7040; J7050; Q9963; Q9967

== ENCOUNTER 2017-10-04 07:41 | Inpatient (IN) | payer MEDICAID ==
[~2017-10-04 07:41] MED LIST: Lactated Ringers 1,000 ML IV SCH; Lidocaine 1%/Sod Bicarbonate in NS 8.4% 1 ML Syringe IDERM PRN; Sodium Chloride 0.9% 10 ML Syringe FLUSH PRN
[2017-10-04] MEDS ORDERED: Ampicillin/Sulbactam Na 1.5 GM in Sodium Chloride 0.9% 100 ML IV ONE (08:00)
--- NOTE | 2017-10-04 08:39 | PCM.PREANE ---
Preanesthetic Assessment - Anesthesia/Transfusion/Family Hx Anesthesia History: Prior Anesthesia Without Reaction Family History of Anesthesia Reaction: No Transfusion History: No Prior Transfusion(s) - Review of Systems Pulmonary: No Symptoms, Other (smoker, last smoked this am) Cardiovascular: No Symptoms Gastrointestinal: Difficulty Swallowing, Other (has hypoglycemic episodes 1-2 per week since gastric bypass) Neurological: No Symptoms, Other - Physical Assessment NPO Status Date: 10/03/17 NPO Status Time: 22:30 Pulse: 99 O2 Sat by Pulse Oximetry: 99 Respiratory Rate: 14 Blood Pressure: 111/75 Vital Signs: Last Vital Signs Temp 36.9 C 10/04/17 07:50 Pulse 99 10/04/17 07:50 Resp 14 10/04/17 07:50 BP 111/75 10/04/17 07:50 Pulse Ox 99 10/04/17 07:50 Height: 1.63 m Weight: 60.781 kg ASA Class: 2 Mental Status: Alert & Oriented x3 Airway Class: Mallampati = 2 Dentition: Reports: Normal Dentition Thyro-Mental Finger Breadths: 3 Mouth Opening Finger Breadths: 3 ROM/Head Extension: Full Lungs: Clear to Auscultation, Normal Respiratory Effort Cardiovascular: Regular Rate, Regular Rhythm - Lab Values: Laboratory Last Values Urine HCG, Qual Negative (NEGATIVE) 10/04/17 07:50 - Allergies Allergies/Adverse Reactions: Allergies Allergy/AdvReac Type Severity Reaction Status Date / Time No Known Allergies Allergy Verified 09/26/17 17:02 - Blood Blood Available: No Product(s) Available: None - Anesthesia Plan Pre-Op Medication Ordered: None - Acknowledgements Anesthesia Type Planned: General Anesthesia Pt an Appropriate Candidate for the Planned Anesthesia: Yes Alternatives and Risks of Anesthesia Discussed w Pt/Guardian: Yes Pt/Guardian Understands and Agrees with Anesthesia Plan: Yes PreAnesthesia Questionnaire Gastrointestinal History: Reports: Gastritis, GERD Musculoskeletal History: Reports: Back Pain, Chronic Neurological History: Reports: Headaches, Chronic, Migraines Endocrine/Metabolic History: Reports: Other (See Below) Other Endocrine/Metabolic History: hypoglycemia - Infectious Disease History Infectious Disease History: Reports: Chicken Pox, Measles - HOME MEDS Home Medications: Home Meds Ondansetron [Zofran ODT] 4 mg PO Q6H PRN #15 tab.dis 05/10/17 [Rx] Potassium Chloride [Klor-Con M20] 20 meq PO Q8H #11 tab.er 05/10/17 [Rx] - CURRENT (IN HOUSE) MEDS Current Meds: Current Medications Lactated Ringer's (Ringers, Lactated) 1,000 mls @ 125 mls/hr IV ASDIRECTED JUAN JOSE Last Admin: 10/04/17 08:10 Dose: 125 mls/hr Lidocaine/Sodium Bicarbonate (Buffered Lidocaine 1% In Ns 8.4%) 0.25 ml IDERM ONETIME PRN PRN Reason: Prior to IV Start Sodium Chloride (Saline Flush) 10 ml FLUSH ASDIRECTED PRN PRN Reason: Keep Vein Open Discontinued Medications Ampicillin Sodium/Sulbactam (Sodium 1.5 gm/ Sodium Chloride) 100 mls @ 200 mls/ hr IV ONETIME ONE Stop: 10/04/17 08:29
[2017-10-04] MEDS ORDERED: Dexamethasone 4 MG/ML 5 ML MDV ONE (08:41)
[2017-10-04] MEDS ORDERED: Lactated Ringers 1,000 ML ONE (08:41)
[2017-10-04] MEDS ORDERED: Rocuronium 50 MG/5 ML Vial ONE (08:41)
[2017-10-04] MEDS ORDERED: Ondansetron 4 MG/2 ML SDV ONE (08:41)
[2017-10-04] MEDS ORDERED: Ketorolac 30 MG/ML SDV ONE (08:41)
[2017-10-04] MEDS ORDERED: Lidocaine 1% 4 ML ONE (08:41)
[2017-10-04] MEDS ORDERED: HYDROmorphone 0.5 MG/0.5 ML Syringe ONE ×3 (08:42→13:42)
[2017-10-04] MEDS ORDERED: Propofol 200 MG/20 ML SDV ONE (08:43)
[2017-10-04] MEDS ORDERED: Midazolam 1 MG/ML 2 ML SDV ONE (08:43)
[2017-10-04] MEDS ORDERED: fentaNYL 250 MCG/5 ML SDV ONE (08:44)
[2017-10-04] MEDS ORDERED: Neostigmine Methylsulfate 1 MG/ML 5 ML Syringe ONE (08:47)
--- NOTE | 2017-10-04 08:49 | PCM.PREANE ---
Preanesthetic Assessment - Anesthesia/Transfusion/Family Hx Anesthesia History: No Prior Anesthesia Family History of Anesthesia Reaction: No Transfusion History: No Prior Transfusion(s) - Review of Systems General: No Symptoms Pulmonary: No Symptoms Cardiovascular: No Symptoms Other: Reports: Diabetes (has hypoglycemia on daily basis, eats every 2hours.) - Physical Assessment NPO Status Date: 10/03/17 NPO Status Time: 20:00 Pulse: 99 O2 Sat by Pulse Oximetry: 99 Respiratory Rate: 14 Blood Pressure: 111/75 Vital Signs: Last Vital Signs Temp 36.9 C 10/04/17 07:50 Pulse 99 10/04/17 08:42 Resp 14 10/04/17 08:42 BP 111/75 10/04/17 08:42 Pulse Ox 99 10/04/17 08:42 Height: 1.63 m Weight: 60.781 kg ASA Class: 2E Mental Status: Other Thyro-Mental Finger Breadths: 3 Mouth Opening Finger Breadths: 2 (limited mouth opening) ROM/Head Extension: Full Lungs: Clear to Auscultation, Normal Respiratory Effort Cardiovascular: Regular Rate, Regular Rhythm - Lab Values: Laboratory Last Values Urine HCG, Qual Negative (NEGATIVE) 10/04/17 07:50 - Allergies Allergies/Adverse Reactions: Allergies Allergy/AdvReac Type Severity Reaction Status Date / Time No Known Allergies Allergy Verified 09/26/17 17:02 - Blood Blood Available: No Product(s) Available: None - Anesthesia Plan Pre-Op Medication Ordered: None - Acknowledgements Anesthesia Type Planned: General Anesthesia Pt an Appropriate Candidate for the Planned Anesthesia: Yes Alternatives and Risks of Anesthesia Discussed w Pt/Guardian: Yes Pt/Guardian Understands and Agrees with Anesthesia Plan: Yes PreAnesthesia Questionnaire Gastrointestinal History: Reports: Gastritis, GERD Musculoskeletal History: Reports: Back Pain, Chronic Neurological History: Reports: Headaches, Chronic, Migraines Endocrine/Metabolic History: Reports: Other (See Below) Other Endocrine/Metabolic History: hypoglycemia - Infectious Disease History Infectious Disease History: Reports: Chicken Pox, Measles - HOME MEDS Home Medications: Home Meds Ondansetron [Zofran ODT] 4 mg PO Q6H PRN #15 tab.dis 05/10/17 [Rx] Potassium Chloride [Klor-Con M20] 20 meq PO Q8H #11 tab.er 05/10/17 [Rx] - CURRENT (IN HOUSE) MEDS Current Meds: Current Medications Lactated Ringer's (Ringers, Lactated) 1,000 mls @ 125 mls/hr IV ASDIRECTED JUAN JOSE Last Admin: 10/04/17 08:10 Dose: 125 mls/hr Lidocaine/Sodium Bicarbonate (Buffered Lidocaine 1% In Ns 8.4%) 0.25 ml IDERM ONETIME PRN PRN Reason: Prior to IV Start Last Admin: 10/04/17 08:09 Dose: 0.25 ml Sodium Chloride (Saline Flush) 10 ml FLUSH ASDIRECTED PRN PRN Reason: Keep Vein Open Discontinued Medications Ampicillin Sodium/Sulbactam (Sodium 1.5 gm/ Sodium Chloride) 100 mls @ 200 mls/ hr IV ONETIME ONE Stop: 10/04/17 08:29 Last Admin: 10/04/17 08:10 Dose: 200 mls/hr
[2017-10-04] MEDS ORDERED: Scopolamine 1.5 MG Transdermal Patch TRDERM ONE ×2 (09:10→09:27)
[2017-10-04] MEDS: Bupivacaine 0.5% 30 ML SDV ONE ×2 (09:54→11:21)
[2017-10-04] MEDS: Sodium Chloride 0.9% 50 ML SDV ONE ×2 (09:55→12:14)
[2017-10-04] MEDS: Iopamidol 612 MG/ML 50 ML SDV ONE ×2 (09:56→12:14)
[2017-10-04] MEDS ORDERED: fentaNYL 100 MCG/2 ML SDV IVPUSH PRN ×2 (11:15→13:37)
[2017-10-04] MEDS ORDERED: Ondansetron 4 MG/2 ML SDV IVPUSH PRN ×2 (11:15→13:37)
[2017-10-04] MEDS ORDERED: ePHEDrine 50 MG/ML SDV IVPUSH PRN (11:15)
[2017-10-04] MEDS ORDERED: Phenylephrine 1 MG in Sodium Chloride 0.9% 10 ML IV SCH (11:15)
[2017-10-04] MEDS ORDERED: diphenhydrAMINE 50 MG/ML SDV IVPUSH PRN (11:15)
[2017-10-04] MEDS ORDERED: HYDROmorphone 0.5 MG/0.5 ML Syringe IVPUSH PRN ×2 (11:17→13:37)
[2017-10-04] MEDS ORDERED: Ampicillin/Sulbactam Na 1.5 GM Vial ONE (11:22)
[2017-10-04] MEDS ORDERED: Sodium Chloride 0.9% 100 ML ONE (11:23)
[2017-10-04] MEDS ORDERED: fentaNYL 100 MCG/2 ML SDV ONE (12:58)
--- NOTE | 2017-10-04 13:17 | PCM.OPNOTE ---
- General Post-Op/Procedure Note Date of Surgery/Procedure: 10/04/17 Operative Procedure(s): laproscopy and open cholecytectomty with IOC Pre Op Diagnosis: cholecystitis and cholelithiasis Post-Op Diagnosis: Same Anesthesia Technique: General ET Tube Primary Surgeon: Roman Sutton EBL in mLs: 26 Complications: None Condition: Good
--- NOTE | 2017-10-04 13:31 | PCM.POSTAN ---
POST ANESTHESIA ASSESSMENT - MENTAL STATUS Mental Status: Alert - VITAL SIGNS Pulse Rate: 74 SaO2: 100 Resp Rate: 8 Blood Pressure: 121/74 Temperature: 36.8 C - RESPIRATORY Respiratory Status: Respiratory Rate WNL, Airway Patent, O2 Saturation Stable, Supplemental Oxygen - CARDIOVASCULAR CV Status: Pulse Rate WNL, Blood Pressure Stable - GASTROINTESTINAL GI Status: No Symptoms - POST OP HYDRATION Hydration Status: Adequate & Stable
[2017-10-04] MEDS ORDERED: Morphine 4 MG/ML Syringe IVPUSH PRN (14:29)
--- NOTE | 2017-10-04 14:40 | CR ---
Operative cholangiogram: Multiple fluoroscopic spot views are obtained utilizing C-arm device during operative cholangiogram exam. Findings: Common hepatic duct and common bile duct show no dilatation. Small portion of the visualized intrahepatic ducts appear normal in caliber. Contrast is seen within the duodenum. No filling defects are seen to indicate retained stone. Impression: 1. No abnormality is seen on operative cholangiogram study. Diagnostic code #1
[2017-10-04] MEDS: Acetaminophen/HYDROcodone 325-5 MG Tab PO PRN (15:15)
[2017-10-04] MEDS: Lactated Ringers 1,000 ML IV SCH (15:18)
--- NOTE | 2017-10-04 15:33 | OR ---
DATE OF OPERATION: 10/04/2017 SURGEON: Roman Sutton MD PREOPERATIVE DIAGNOSIS: Cholelithiasis and cholecystitis. POSTOPERATIVE DIAGNOSIS: Cholelithiasis and cholecystitis. OPERATION PERFORMED: Laparoscopy, open cholecystectomy. ESTIMATED BLOOD LOSS: About 26 mL. FINDINGS: Acutely inflamed and thickened wall of gallbladder with complete lack of anatomical details in Calot's triangle. Cholangiogram was done and showed right and left hepatic ducts with normal flow into the duodenum, gallstones, and adhesions over the fundus of the gallbladder. DESCRIPTION OF PROCEDURE: The patient was taken to the operating room, placed in a supine position, given a general anesthetic, and intubated. Antibiotics were given. SCDs were placed. The abdomen was then prepped with chlorhexidine and alcohol, prepped and draped off in a sterile fashion. An incision was made just below the umbilicus and using a 5-mm Optiport, abdominal cavity was entered and pneumoperitoneum established. A 5-mm 30-degree camera was then inserted. This demonstrated the gallbladder in the right upper quadrant with adhesions to the fundus of the gallbladder. The 0-degree camera was not available and a 30-degree 5-mm camera was used. A 5-mm trocars were placed in the epigastrium, one in the right upper quadrant, and another 5 mm trocar in the right lateral quadrant. Fundus of the gallbladder was then cleared of adhesions with electrocautery, and the fundus was then retracted in a cephalad position. The duodenum was dissected off the Yaya pouch, but the anatomy was quite obscured and oozing was noted from the surface of the adhesions that were cut. It was elected at this time, for safety of the patient, to abandon the laparoscopic approach. Pneumoperitoneum was then removed, and the ports were then closed with a subdermal 4-0 Dexon suture. After laparotomy pack was added to the surgical table and all instruments and laps counted, an incision was made in the right subcostal area and carried down by sharp dissection to the fat. The fascia, anterior fascia, and the muscle were then incised and posterior fascia incised after hemostasis was secured with clamping the bleeders in the muscle and tying off with 3-0 Vicryl suture. The gallbladder was then delivered through the incision using retractors. The gallbladder was then taken down in a retrograde fashion to where the cystic duct was identified. This was dissected free of surrounding adhesions. Cholangiocatheter was inserted and secured with a clip. A cholangiogram was then obtained with contrast material diluted with equal parts of saline and C- arm. This demonstrated the above findings. The cystic duct was then cut and secured with 0 PDS Endoloop and a hemoclip. The area was irrigated and hemostasis checked was excellent. Lap and instrument counts were correct. A Gigi-Gifford drain 10 mm was then placed in the Morison's pouch, brought out through a separate stab wound to the skin and secured with a silk suture. The posterior fascia was then closed with a running #1 PDS. The anterior fascia was closed in the same fashion. Dermis was brought together with interrupted 3-0 Vicryl suture and kyler were used to approximate the skin. Sterile dressing was placed and 0.5% Marcaine infiltrated in the skin. The patient tolerated the procedure and was sent to recovery room in a stable condition. ANESTHESIA: CRISTINE /[id number]
[2017-10-04] MEDS: Ketorolac 30 MG/ML SDV IVPUSH PRN (18:40)
[2017-10-04] MEDS ORDERED: HYDROmorphone 0.5 MG/0.5 ML SYRINGE IVPUSH PRN (19:48)
[2017-10-05] MEDS: Lactated Ringers 1,000 ML IV SCH ×3 (00:35→20:08)
[2017-10-05] MEDS: Acetaminophen/HYDROcodone 325-5 MG Tab PO PRN ×4 (00:36→20:20)
[2017-10-05] MEDS: Ketorolac 30 MG/ML SDV IVPUSH PRN ×4 (00:37→20:20)
--- NOTE | 2017-10-05 07:47 | PCM48HPAN ---
Post Anesthesia Note - EVALUATION WITHIN 48HRS OF ANESTHETIC Vital Signs in Normal Range: Yes Patient Participated in Evaluation: Yes Respiratory Function Stable: Yes Airway Patent: Yes Cardiovascular Function Stable: Yes Hydration Status Stable: Yes Pain Control Satisfactory: Yes Nausea and Vomiting Control Satisfactory: Yes Mental Status Recovered: Yes
--- NOTE | 2017-10-05 14:35 | PCM.SURGPN ---
- General Info Date of Service: 10/05/17 POD#: 1 Functional Status: Reports: Pain Controlled - Review of Systems General: Reports: No Symptoms Pulmonary: Reports: No Symptoms Cardiovascular: Reports: No Symptoms - Patient Data Vitals - Most Recent: Last Vital Signs Temp 98.8 F 10/05/17 07:56 Pulse 83 10/05/17 07:56 Resp 20 10/05/17 07:56 BP 117/65 10/05/17 07:56 Pulse Ox 98 10/05/17 07:56 Weight - Most Recent: 64.098 kg I&O - Last 24 Hours: Intake & Output 10/04/17 10/05/17 10/05/17 23:59 07:59 15:59 Intake Total 180 1558 260 Output Total 30 Balance 180 1528 260 Med Orders - Current: Current Medications Hydrocodone Bitart/Acetaminophen ([place] 325-5 Mg) 1 tab PO Q6H PRN PRN Reason: Pain Last Admin: 10/05/17 13:57 Dose: 1 tab Enoxaparin Sodium (Lovenox) 40 mg SUBCUT Q24H JUAN JOSE Hydromorphone HCl (Dilaudid) 1 mg IVPUSH Q2HR PRN PRN Reason: Pain Lactated Ringer's (Ringers, Lactated) 1,000 mls @ 100 mls/hr IV ASDIRECTED JUAN JOSE Last Admin: 10/05/17 09:56 Dose: 100 mls/hr Ketorolac Tromethamine (Toradol) 30 mg IVPUSH Q6H PRN PRN Reason: Pain Last Admin: 10/05/17 13:57 Dose: 30 mg Ondansetron HCl (Zofran) 4 mg IVPUSH Q8H PRN PRN Reason: Nausea Discontinued Medications Ampicillin Sodium/Sulbactam Sodium (Unasyn) Confirm Administered Dose 1.5 gm .ROUTE .STK-MED ONE Stop: 10/04/17 11:23 Bupivacaine HCl (Marcaine 0.5%) Confirm Administered Dose 30 ml .ROUTE .STK-MED ONE Stop: 10/04/17 09:23 Last Admin: 10/04/17 11:21 Dose: 25 ml Dexamethasone (Dexamethasone) Confirm Administered Dose 20 mg .ROUTE .STK-MED ONE Stop: 10/04/17 08:42 Diphenhydramine HCl (Benadryl) 25 mg IVPUSH Q6H PRN PRN Reason: pruritis Stop: 10/04/17 16:00 Ephedrine Sulfate (Ephedrine Sulfate) 5 mg IVPUSH ASDIRECTED PRN PRN Reason: Hypotension Stop: 10/04/17 16:00 Fentanyl (Sublimaze) Confirm Administered Dose 250 mcg .ROUTE .STK-MED ONE Stop: 10/04/17 08:45 Fentanyl (Sublimaze) 50 mcg IVPUSH Q5M PRN PRN Reason: Pain Stop: 10/04/17 11:16 Fentanyl (Sublimaze) Confirm Administered Dose 100 mcg .ROUTE .STK-MED ONE Stop: 10/04/17 12:59 Fentanyl (Sublimaze) 50 mcg IVPUSH Q5M PRN PRN Reason: Pain Stop: 10/04/17 18:00 Last Admin: 10/04/17 13:47 Dose: 50 mcg Glycopyrrolate () Confirm Administered Dose 1 mg .ROUTE .STK-MED ONE Stop: 10/04/17 08:48 Hydromorphone HCl (Dilaudid) Confirm Administered Dose 0.5 mg .ROUTE .STK-MED ONE Stop: 10/04/17 08:43 Hydromorphone HCl (Dilaudid) Confirm Administered Dose 0.5 mg .ROUTE .STK-MED ONE Stop: 10/04/17 09:50 Hydromorphone HCl (Dilaudid) 0.5 mg IVPUSH ONETIME PRN PRN Reason: Pain Stop: 10/04/17 11:18 Hydromorphone HCl (Dilaudid) 0.5 mg IVPUSH ONETIME PRN PRN Reason: Pain Stop: 10/04/17 18:00 Last Admin: 10/04/17 13:45 Dose: 0.5 mg Hydromorphone HCl (Dilaudid) Confirm Administered Dose 0.5 mg .ROUTE .STK-MED ONE Stop: 10/04/17 13:43 Last Admin: 10/04/17 15:07 Dose: Not Given Lactated Ringer's (Ringers, Lactated) 1,000 mls @ 125 mls/hr IV ASDIRECTED JUAN JOSE Stop: 10/04/17 23:00 Last Admin: 10/04/17 08:10 Dose: 125 mls/hr Ampicillin Sodium/Sulbactam (Sodium 1.5 gm/ Sodium Chloride) 100 mls @ 200 mls/ hr IV ONETIME ONE Stop: 10/04/17 08:29 Last Admin: 10/04/17 08:10 Dose: 200 mls/hr Lidocaine HCl (Xylocaine-Mpf 1%) Confirm Administered Dose 4 mls @ as directed .ROUTE .STK-MED ONE Stop: 10/04/17 08:42 Lactated Ringer's (Ringers, Lactated) Confirm Administered Dose 1,000 mls @ as directed .ROUTE .STK-MED ONE Stop: 10/04/17 08:42 Phenylephrine HCl 1 mg/ Sodium (Chloride) 10.1 mls @ 1 mls/sec IV TITRATE JUAN JOSE; Protocol Stop: 10/04/17 16:00 Sodium Chloride (Normal Saline) Confirm Administered Dose 100 mls @ as directed .ROUTE .STK-MED ONE Stop: 10/04/17 11:24 Iopamidol (Isovue-300 (61%)) Confirm Administered Dose 50 ml .ROUTE .STK-MED ONE Stop: 10/04/17 09:25 Last Admin: 10/04/17 12:14 Dose: 9 ml Ketorolac Tromethamine (Toradol) Confirm Administered Dose 30 mg .ROUTE .STK- MED ONE Stop: 10/04/17 08:42 Lidocaine/Sodium Bicarbonate (Buffered Lidocaine 1% In Ns 8.4%) 0.25 ml IDERM ONETIME PRN PRN Reason: Prior to IV Start Stop: 10/04/17 18:00 Last Admin: 10/04/17 08:09 Dose: 0.25 ml Midazolam HCl (Versed 1 Mg/Ml) Confirm Administered Dose 2 mg .ROUTE .STK-MED ONE Stop: 10/04/17 08:44 Morphine Sulfate (Morphine) 4 mg IVPUSH Q2H PRN PRN Reason: Pain Neostigmine Methylsulfate (Neostigmine) Confirm Administered Dose 5 mg .ROUTE .STK-MED ONE Stop: 10/04/17 08:48 Ondansetron HCl (Zofran) Confirm Administered Dose 4 mg .ROUTE .STK-MED ONE Stop: 10/04/17 08:42 Ondansetron HCl (Zofran) 4 mg IVPUSH ONETIME PRN PRN Reason: Nausea/Vomiting Stop: 10/04/17 16:00 Ondansetron HCl (Zofran) 4 mg IVPUSH ONETIME PRN PRN Reason: Nausea/Vomiting Stop: 10/04/17 18:00 Propofol (Diprivan 20 Ml) Confirm Administered Dose 200 mg .ROUTE .STK-MED ONE Stop: 10/04/17 08:44 Rocuronium [place] (Zemuron) Confirm Administered Dose 50 mg .ROUTE .STK-MED ONE Stop: 10/04/17 08:42 Scopolamine (Transderm-Scop) 1.5 mg TRDERM ONETIME ONE Stop: 10/04/17 09:11 Last Admin: 10/04/17 09:05 Dose: 1.5 mg Scopolamine (Transderm-Scop) 1.5 mg TRDERM ONETIME ONE Stop: 10/04/17 09:28 Last Admin: 10/04/17 15:11 Dose: Not Given Sodium Chloride (Saline Flush) 10 ml FLUSH ASDIRECTED PRN PRN Reason: Keep Vein Open Stop: 10/04/17 18:00 Sodium Chloride (Normal Saline) Confirm Administered Dose 50 ml .ROUTE .STK-MED ONE Stop: 10/04/17 09:25 Last Admin: 10/04/17 12:14 Dose: 9 ml - Exam Wound/Incisions: Healing Well General: Alert, Oriented Lungs: Clear to Auscultation, Normal Respiratory Effort GI/Abdominal Exam: Tender (from incision abdomen quiet) - Problem List Review Problem List Initiated/Reviewed/Updated: Yes - My Orders Last 24 Hours: Active Orders 24 hr Category Date Time Status Patient Status [ADT] Routine ADT 10/04/17 14:35 Active Ambulate [RC] ASDIRECTED Care 10/04/17 14:29 Active Incentive Spirometry [RT Incentive Spirometry] [RC] Care 10/04/17 14:29 Active Q2HWA Turn, Cough, Deep Breathe [RC] .PRN Care 10/04/17 14:29 Active Clear Liquid Diet [DIET] Diet 10/04/17 Dinner Active Acetaminophen/HYDROcodone [[place] 325-5 MG] Med 10/04/17 14:29 Active 1 tab PO Q6H PRN Enoxaparin [Lovenox] Med 10/05/17 14:30 Ordered 40 mg SUBCUT Q24H HYDROmorphone [Dilaudid] Med 10/04/17 19:48 Active 1 mg IVPUSH Q2HR PRN Ketorolac [Toradol] Med 10/04/17 14:29 Active 30 mg IVPUSH Q6H PRN Lactated Ringers [Ringers, Lactated] 1,000 ml Med 10/04/17 14:29 Active IV ASDIRECTED Ondansetron [Zofran] Med 10/04/17 14:29 Active 4 mg IVPUSH Q8H PRN SCD [Sequential Compression Device] [OM.PC] Routine Oth 10/04/17 14:29 Ordered Resuscitation Status Routine Resus Stat 10/04/17 15:05 Ordered Medication Orders Hydrocodone Bitart/Acetaminophen ([place] 325-5 Mg) 1 tab PO Q6H PRN PRN Reason: Pain Last Admin: 10/05/17 13:57 Dose: 1 tab Admin: 10/05/17 08:03 Dose: 1 tab Admin: 10/05/17 00:36 Dose: 1 tab Admin: 10/04/17 15:15 Dose: 1 tab Enoxaparin Sodium (Lovenox) 40 mg SUBCUT Q24H JUAN JOSE Hydromorphone HCl (Dilaudid) 1 mg IVPUSH Q2HR PRN PRN Reason: Pain Lactated Ringer's (Ringers, Lactated) 1,000 mls @ 100 mls/hr IV ASDIRECTED JUAN JOSE Last Admin: 10/05/17 09:56 Dose: 100 mls/hr Infusion: 10/05/17 09:56 Dose: 100 mls/hr Admin: 10/05/17 00:35 Dose: 100 mls/hr Infusion: 10/05/17 00:35 Dose: 100 mls/hr Admin: 10/04/17 15:18 Dose: 100 mls/hr Ketorolac Tromethamine (Toradol) 30 mg IVPUSH Q6H PRN PRN Reason: Pain Last Admin: 10/05/17 13:57 Dose: 30 mg Admin: 10/05/17 08:29 Dose: 30 mg Admin: 10/05/17 00:37 Dose: 30 mg Admin: 10/04/17 18:40 Dose: 30 mg Ondansetron HCl (Zofran) 4 mg IVPUSH Q8H PRN PRN Reason: Nausea - Plan Plan (Free Text/Narrative):: stable plan is start DVT prophylaxis
[2017-10-05] MEDS: Enoxaparin 40 MG/0.4 ML Syringe SUBCUT SCH (14:49)
[2017-10-05] MEDS: Ondansetron 4 MG/2 ML SDV IVPUSH PRN (22:57)
[2017-10-06] MEDS: Ketorolac 30 MG/ML SDV IVPUSH PRN ×3 (05:35→21:23)
[2017-10-06] MEDS: Acetaminophen/HYDROcodone 325-5 MG Tab PO PRN ×2 (05:36→22:15)
[2017-10-06] MEDS: Lactated Ringers 1,000 ML IV SCH ×2 (05:58→15:26)
[2017-10-06] MEDS: Ondansetron 4 MG/2 ML SDV IVPUSH PRN ×2 (06:56→13:11)
--- NOTE | 2017-10-06 12:35 | PCM.SURGPN ---
- General Info Date of Service: 10/06/17 POD#: 2 Functional Status: Reports: Pain Controlled - Review of Systems General: Reports: No Symptoms Gastrointestinal: Reports: Constipation, Flatus, Nausea - Patient Data Vitals - Most Recent: Last Vital Signs Temp 99.0 F 10/06/17 09:47 Pulse 78 10/06/17 09:47 Resp 20 10/06/17 09:47 BP 116/68 10/06/17 09:47 Pulse Ox 99 10/06/17 09:47 Weight - Most Recent: 65.68 kg I&O - Last 24 Hours: Intake & Output 10/05/17 10/06/17 10/06/17 23:59 07:59 15:59 Intake Total 2046 Output Total Balance 2021 Med Orders - Current: Current Medications Hydrocodone Bitart/Acetaminophen ([place] 325-5 Mg) 1 tab PO Q6H PRN PRN Reason: Pain Last Admin: 10/06/17 05:36 Dose: 1 tab Enoxaparin Sodium (Lovenox) 40 mg SUBCUT Q24H [facility] Last Admin: 10/05/17 14:49 Dose: 40 mg Hydromorphone HCl (Dilaudid) 1 mg IVPUSH Q2HR PRN PRN Reason: Pain Lactated Ringer's (Ringers, Lactated) 1,000 mls @ 100 mls/hr IV ASDIRECTED [facility] Last Admin: 10/06/17 05:58 Dose: 100 mls/hr Ketorolac Tromethamine (Toradol) 30 mg IVPUSH Q6H PRN PRN Reason: Pain Last Admin: 10/06/17 05:35 Dose: 30 mg Ondansetron HCl (Zofran) 4 mg IVPUSH Q8H PRN PRN Reason: Nausea Last Admin: 10/06/17 06:56 Dose: 4 mg Discontinued Medications Ampicillin Sodium/Sulbactam Sodium (Unasyn) Confirm Administered Dose 1.5 gm .ROUTE .STK-MED ONE Stop: 10/04/17 11:23 Bupivacaine HCl (Marcaine 0.5%) Confirm Administered Dose 30 ml .ROUTE .STK-MED ONE Stop: 10/04/17 09:23 Last Admin: 10/04/17 11:21 Dose: 25 ml Dexamethasone (Dexamethasone) Confirm Administered Dose 20 mg .ROUTE .STK-MED ONE Stop: 10/04/17 08:42 Diphenhydramine HCl (Benadryl) 25 mg IVPUSH Q6H PRN PRN Reason: pruritis Stop: 10/04/17 16:00 Ephedrine Sulfate (Ephedrine Sulfate) 5 mg IVPUSH ASDIRECTED PRN PRN Reason: Hypotension Stop: 10/04/17 16:00 Fentanyl (Sublimaze) Confirm Administered Dose 250 mcg .ROUTE .STK-MED ONE Stop: 10/04/17 08:45 Fentanyl (Sublimaze) 50 mcg IVPUSH Q5M PRN PRN Reason: Pain Stop: 10/04/17 11:16 Fentanyl (Sublimaze) Confirm Administered Dose 100 mcg .ROUTE .STK-MED ONE Stop: 10/04/17 12:59 Fentanyl (Sublimaze) 50 mcg IVPUSH Q5M PRN PRN Reason: Pain Stop: 10/04/17 18:00 Last Admin: 10/04/17 13:47 Dose: 50 mcg Glycopyrrolate () Confirm Administered Dose 1 mg .ROUTE .STK-MED ONE Stop: 10/04/17 08:48 Hydromorphone HCl (Dilaudid) Confirm Administered Dose 0.5 mg .ROUTE .STK-MED ONE Stop: 10/04/17 08:43 Hydromorphone HCl (Dilaudid) Confirm Administered Dose 0.5 mg .ROUTE .STK-MED ONE Stop: 10/04/17 09:50 Hydromorphone HCl (Dilaudid) 0.5 mg IVPUSH ONETIME PRN PRN Reason: Pain Stop: 10/04/17 11:18 Hydromorphone HCl (Dilaudid) 0.5 mg IVPUSH ONETIME PRN PRN Reason: Pain Stop: 10/04/17 18:00 Last Admin: 10/04/17 13:45 Dose: 0.5 mg Hydromorphone HCl (Dilaudid) Confirm Administered Dose 0.5 mg .ROUTE .STK-MED ONE Stop: 10/04/17 13:43 Last Admin: 10/04/17 15:07 Dose: Not Given Lactated Ringer's (Ringers, Lactated) 1,000 mls @ 125 mls/hr IV ASDIRECTED JUAN JOSE Stop: 10/04/17 23:00 Last Admin: 10/04/17 08:10 Dose: 125 mls/hr Ampicillin Sodium/Sulbactam (Sodium 1.5 gm/ Sodium Chloride) 100 mls @ 200 mls/ hr IV ONETIME ONE Stop: 10/04/17 08:29 Last Admin: 10/04/17 08:10 Dose: 200 mls/hr Lidocaine HCl (Xylocaine-Mpf 1%) Confirm Administered Dose 4 mls @ as directed .ROUTE .STK-MED ONE Stop: 10/04/17 08:42 Lactated Ringer's (Ringers, Lactated) Confirm Administered Dose 1,000 mls @ as directed .ROUTE .STK-MED ONE Stop: 10/04/17 08:42 Phenylephrine HCl 1 mg/ Sodium (Chloride) 10.1 mls @ 1 mls/sec IV TITRATE JUAN JOSE; Protocol Stop: 10/04/17 16:00 Sodium Chloride (Normal Saline) Confirm Administered Dose 100 mls @ as directed .ROUTE .STK-MED ONE Stop: 10/04/17 11:24 Iopamidol (Isovue-300 (61%)) Confirm Administered Dose 50 ml .ROUTE .STK-MED ONE Stop: 10/04/17 09:25 Last Admin: 10/04/17 12:14 Dose: 9 ml Ketorolac Tromethamine (Toradol) Confirm Administered Dose 30 mg .ROUTE .STK- MED ONE Stop: 10/04/17 08:42 Lidocaine/Sodium Bicarbonate (Buffered Lidocaine 1% In Ns 8.4%) 0.25 ml IDERM ONETIME PRN PRN Reason: Prior to IV Start Stop: 10/04/17 18:00 Last Admin: 10/04/17 08:09 Dose: 0.25 ml Midazolam HCl (Versed 1 Mg/Ml) Confirm Administered Dose 2 mg .ROUTE .STK-MED ONE Stop: 10/04/17 08:44 Morphine Sulfate (Morphine) 4 mg IVPUSH Q2H PRN PRN Reason: Pain Neostigmine Methylsulfate (Neostigmine) Confirm Administered Dose 5 mg .ROUTE .STK-MED ONE Stop: 10/04/17 08:48 Ondansetron HCl (Zofran) Confirm Administered Dose 4 mg .ROUTE .STK-MED ONE Stop: 10/04/17 08:42 Ondansetron HCl (Zofran) 4 mg IVPUSH ONETIME PRN PRN Reason: Nausea/Vomiting Stop: 10/04/17 16:00 Ondansetron HCl (Zofran) 4 mg IVPUSH ONETIME PRN PRN Reason: Nausea/Vomiting Stop: 10/04/17 18:00 Propofol (Diprivan 20 Ml) Confirm Administered Dose 200 mg .ROUTE .STK-MED ONE Stop: 10/04/17 08:44 Rocuronium [place] (Zemuron) Confirm Administered Dose 50 mg .ROUTE .STK-MED ONE Stop: 10/04/17 08:42 Scopolamine (Transderm-Scop) 1.5 mg TRDERM ONETIME ONE Stop: 10/04/17 09:11 Last Admin: 10/04/17 09:05 Dose: 1.5 mg Scopolamine (Transderm-Scop) 1.5 mg TRDERM ONETIME ONE Stop: 10/04/17 09:28 Last Admin: 10/04/17 15:11 Dose: Not Given Sodium Chloride (Saline Flush) 10 ml FLUSH ASDIRECTED PRN PRN Reason: Keep Vein Open Stop: 10/04/17 18:00 Sodium Chloride (Normal Saline) Confirm Administered Dose 50 ml .ROUTE .STK-MED ONE Stop: 10/04/17 09:25 Last Admin: 10/04/17 12:14 Dose: 9 ml - Exam Wound/Incisions: Healing Well General: Alert, Oriented Lungs: Clear to Auscultation, Normal Respiratory Effort Cardiovascular: Regular Rate, Regular Rhythm GI/Abdominal Exam: Soft, Other (tender incision but healing ) - Problem List Review Problem List Initiated/Reviewed/Updated: Yes - My Orders Last 24 Hours: Active Orders 24 hr Category Date Time Status Enoxaparin [Lovenox] Med 10/05/17 14:30 Active 40 mg SUBCUT Q24H Medication Orders Hydrocodone Bitart/Acetaminophen ([place] 325-5 Mg) 1 tab PO Q6H PRN PRN Reason: Pain Last Admin: 10/06/17 05:36 Dose: 1 tab Admin: 10/05/17 20:20 Dose: 1 tab Admin: 10/05/17 13:57 Dose: 1 tab Admin: 10/05/17 08:03 Dose: 1 tab Admin: 10/05/17 00:36 Dose: 1 tab Admin: 10/04/17 15:15 Dose: 1 tab Enoxaparin Sodium (Lovenox) 40 mg SUBCUT Q24H [facility] Last Admin: 10/05/17 14:49 Dose: 40 mg Hydromorphone HCl (Dilaudid) 1 mg IVPUSH Q2HR PRN PRN Reason: Pain Lactated Ringer's (Ringers, Lactated) 1,000 mls @ 100 mls/hr IV ASDIRECTED [facility] Last Admin: 10/06/17 05:58 Dose: 100 mls/hr Infusion: 10/06/17 05:58 Dose: 100 mls/hr Admin: 10/05/17 20:08 Dose: 100 mls/hr Infusion: 10/05/17 19:56 Dose: 100 mls/hr Admin: 10/05/17 09:56 Dose: 100 mls/hr Infusion: 10/05/17 09:56 Dose: 100 mls/hr Admin: 10/05/17 00:35 Dose: 100 mls/hr Infusion: 10/05/17 00:35 Dose: 100 mls/hr Admin: 10/04/17 15:18 Dose: 100 mls/hr Ketorolac Tromethamine (Toradol) 30 mg IVPUSH Q6H PRN PRN Reason: Pain Last Admin: 10/06/17 05:35 Dose: 30 mg Admin: 10/05/17 20:20 Dose: 30 mg Admin: 10/05/17 13:57 Dose: 30 mg Admin: 10/05/17 08:29 Dose: 30 mg Admin: 10/05/17 00:37 Dose: 30 mg Admin: 10/04/17 18:40 Dose: 30 mg Ondansetron HCl (Zofran) 4 mg IVPUSH Q8H PRN PRN Reason: Nausea Last Admin: 10/06/17 06:56 Dose: 4 mg Admin: 10/05/17 22:57 Dose: 4 mg - Plan Plan (Free Text/Narrative):: improving plan change dressing and give dulcolax and may shower
[2017-10-06] MEDS ORDERED: Bisacodyl 10 MG Supp RECTAL ONE (13:04)
[2017-10-06] MEDS: Enoxaparin 40 MG/0.4 ML Syringe SUBCUT SCH (15:20)
[2017-10-07] MEDS: Lactated Ringers 1,000 ML IV SCH (01:46)
[2017-10-07] MEDS: Ondansetron 4 MG/2 ML SDV IVPUSH PRN ×2 (03:04→10:49)
[2017-10-07] MEDS: Ketorolac 30 MG/ML SDV IVPUSH PRN (10:49)
[2017-10-07] MEDS ORDERED: Acetaminophen 325 MG Tab PO PRN (11:18)
--- NOTE | 2017-10-07 11:31 | PCM.SURGPN ---
- General Info Date of Service: 10/07/17 POD#: 3 Functional Status: Reports: Pain Controlled - Review of Systems General: Reports: No Symptoms Pulmonary: Reports: No Symptoms Cardiovascular: Reports: No Symptoms Gastrointestinal: Reports: No Symptoms - Patient Data Vitals - Most Recent: Last Vital Signs Temp 98.4 F 10/07/17 07:47 Pulse 76 10/07/17 07:47 Resp 16 10/07/17 07:47 BP 109/69 10/07/17 07:47 Pulse Ox 97 10/07/17 07:47 Weight - Most Recent: 65.816 kg I&O - Last 24 Hours: Intake & Output 10/06/17 10/07/17 10/07/17 23:59 07:59 15:59 Intake Total 1570 1524 620 Output Total 30 Balance 1570 1494 620 Med Orders - Current: Current Medications Acetaminophen (Tylenol) 650 mg PO Q6H PRN PRN Reason: Pain Hydromorphone HCl (Dilaudid) 1 mg IVPUSH Q2HR PRN PRN Reason: Pain Ondansetron HCl (Zofran) 4 mg IVPUSH Q8H PRN PRN Reason: Nausea Last Admin: 10/07/17 10:49 Dose: 4 mg Discontinued Medications Hydrocodone Bitart/Acetaminophen ([place] 325-5 Mg) 1 tab PO Q6H PRN PRN Reason: Pain Last Admin: 10/06/17 22:15 Dose: 1 tab Ampicillin Sodium/Sulbactam Sodium (Unasyn) Confirm Administered Dose 1.5 gm .ROUTE .STK-MED ONE Stop: 10/04/17 11:23 Bisacodyl (Dulcolax) 10 mg RECTAL ONETIME ONE Stop: 10/06/17 13:05 Last Admin: 10/06/17 15:33 Dose: 10 mg Bupivacaine HCl (Marcaine 0.5%) Confirm Administered Dose 30 ml .ROUTE .STK-MED ONE Stop: 10/04/17 09:23 Last Admin: 10/04/17 11:21 Dose: 25 ml Dexamethasone (Dexamethasone) Confirm Administered Dose 20 mg .ROUTE .STK-MED ONE Stop: 10/04/17 08:42 Diphenhydramine HCl (Benadryl) 25 mg IVPUSH Q6H PRN PRN Reason: pruritis Stop: 10/04/17 16:00 Enoxaparin Sodium (Lovenox) 40 mg SUBCUT Q24H [facility] Last Admin: 10/06/17 15:20 Dose: 40 mg Ephedrine Sulfate (Ephedrine Sulfate) 5 mg IVPUSH ASDIRECTED PRN PRN Reason: Hypotension Stop: 10/04/17 16:00 Fentanyl (Sublimaze) Confirm Administered Dose 250 mcg .ROUTE .STK-MED ONE Stop: 10/04/17 08:45 Fentanyl (Sublimaze) 50 mcg IVPUSH Q5M PRN PRN Reason: Pain Stop: 10/04/17 11:16 Fentanyl (Sublimaze) Confirm Administered Dose 100 mcg .ROUTE .STK-MED ONE Stop: 10/04/17 12:59 Fentanyl (Sublimaze) 50 mcg IVPUSH Q5M PRN PRN Reason: Pain Stop: 10/04/17 18:00 Last Admin: 10/04/17 13:47 Dose: 50 mcg Glycopyrrolate () Confirm Administered Dose 1 mg .ROUTE .STK-MED ONE Stop: 10/04/17 08:48 Hydromorphone HCl (Dilaudid) Confirm Administered Dose 0.5 mg .ROUTE .STK-MED ONE Stop: 10/04/17 08:43 Hydromorphone HCl (Dilaudid) Confirm Administered Dose 0.5 mg .ROUTE .STK-MED ONE Stop: 10/04/17 09:50 Hydromorphone HCl (Dilaudid) 0.5 mg IVPUSH ONETIME PRN PRN Reason: Pain Stop: 10/04/17 11:18 Hydromorphone HCl (Dilaudid) 0.5 mg IVPUSH ONETIME PRN PRN Reason: Pain Stop: 10/04/17 18:00 Last Admin: 10/04/17 13:45 Dose: 0.5 mg Hydromorphone HCl (Dilaudid) Confirm Administered Dose 0.5 mg .ROUTE .STK-MED ONE Stop: 10/04/17 13:43 Last Admin: 10/04/17 15:07 Dose: Not Given Lactated Ringer's (Ringers, Lactated) 1,000 mls @ 125 mls/hr IV ASDIRECTED JUAN JOSE Stop: 10/04/17 23:00 Last Admin: 10/04/17 08:10 Dose: 125 mls/hr Ampicillin Sodium/Sulbactam (Sodium 1.5 gm/ Sodium Chloride) 100 mls @ 200 mls/ hr IV ONETIME ONE Stop: 10/04/17 08:29 Last Admin: 10/04/17 08:10 Dose: 200 mls/hr Lidocaine HCl (Xylocaine-Mpf 1%) Confirm Administered Dose 4 mls @ as directed .ROUTE .STK-MED ONE Stop: 10/04/17 08:42 Lactated Ringer's (Ringers, Lactated) Confirm Administered Dose 1,000 mls @ as directed .ROUTE .STK-MED ONE Stop: 10/04/17 08:42 Phenylephrine HCl 1 mg/ Sodium (Chloride) 10.1 mls @ 1 mls/sec IV TITRATE JUAN JOSE; Protocol Stop: 10/04/17 16:00 Sodium Chloride (Normal Saline) Confirm Administered Dose 100 mls @ as directed .ROUTE .STK-MED ONE Stop: 10/04/17 11:24 Lactated Ringer's (Ringers, Lactated) 1,000 mls @ 100 mls/hr IV ASDIRECTED JUAN JOSE Last Admin: 10/07/17 01:46 Dose: 100 mls/hr Iopamidol (Isovue-300 (61%)) Confirm Administered Dose 50 ml .ROUTE .STK-MED ONE Stop: 10/04/17 09:25 Last Admin: 10/04/17 12:14 Dose: 9 ml Ketorolac Tromethamine (Toradol) Confirm Administered Dose 30 mg .ROUTE .STK- MED ONE Stop: 10/04/17 08:42 Ketorolac Tromethamine (Toradol) 30 mg IVPUSH Q6H PRN PRN Reason: Pain Last Admin: 10/07/17 10:49 Dose: 30 mg Lidocaine/Sodium Bicarbonate (Buffered Lidocaine 1% In Ns 8.4%) 0.25 ml IDERM ONETIME PRN PRN Reason: Prior to IV Start Stop: 10/04/17 18:00 Last Admin: 10/04/17 08:09 Dose: 0.25 ml Midazolam HCl (Versed 1 Mg/Ml) Confirm Administered Dose 2 mg .ROUTE .STK-MED ONE Stop: 10/04/17 08:44 Morphine Sulfate (Morphine) 4 mg IVPUSH Q2H PRN PRN Reason: Pain Neostigmine Methylsulfate (Neostigmine) Confirm Administered Dose 5 mg .ROUTE .STK-MED ONE Stop: 10/04/17 08:48 Ondansetron HCl (Zofran) Confirm Administered Dose 4 mg .ROUTE .STK-MED ONE Stop: 10/04/17 08:42 Ondansetron HCl (Zofran) 4 mg IVPUSH ONETIME PRN PRN Reason: Nausea/Vomiting Stop: 10/04/17 16:00 Ondansetron HCl (Zofran) 4 mg IVPUSH ONETIME PRN PRN Reason: Nausea/Vomiting Stop: 10/04/17 18:00 Propofol (Diprivan 20 Ml) Confirm Administered Dose 200 mg .ROUTE .STK-MED ONE Stop: 10/04/17 08:44 Rocuronium [place] (Zemuron) Confirm Administered Dose 50 mg .ROUTE .STK-MED ONE Stop: 10/04/17 08:42 Scopolamine (Transderm-Scop) 1.5 mg TRDERM ONETIME ONE Stop: 10/04/17 09:11 Last Admin: 10/04/17 09:05 Dose: 1.5 mg Scopolamine (Transderm-Scop) 1.5 mg TRDERM ONETIME ONE Stop: 10/04/17 09:28 Last Admin: 10/04/17 15:11 Dose: Not Given Sodium Chloride (Saline Flush) 10 ml FLUSH ASDIRECTED PRN PRN Reason: Keep Vein Open Stop: 10/04/17 18:00 Sodium Chloride (Normal Saline) Confirm Administered Dose 50 ml .ROUTE .STK-MED ONE Stop: 10/04/17 09:25 Last Admin: 10/04/17 12:14 Dose: 9 ml - Exam Wound/Incisions: Healing Well Lungs: Clear to Auscultation, Normal Respiratory Effort Cardiovascular: Regular Rate, Regular Rhythm GI/Abdominal Exam: Normal Bowel Sounds, Soft, Non-Tender, No Organomegaly, No Distention, No Abnormal Bruit, No Mass, Pelvis Stable - Problem List Review Problem List Initiated/Reviewed/Updated: Yes - My Orders Last 24 Hours: Active Orders 24 hr Category Date Time Status May Shower [RC] ASDIRECTED Care 10/06/17 13:04 Active CBC WITH AUTO DIFF [HEME] Routine Lab 10/07/17 11:20 Ordered Acetaminophen [Tylenol] Med 10/07/17 11:18 Active 650 mg PO Q6H PRN Medication Orders Acetaminophen (Tylenol) 650 mg PO Q6H PRN PRN Reason: Pain Hydromorphone HCl (Dilaudid) 1 mg IVPUSH Q2HR PRN PRN Reason: Pain Ondansetron HCl (Zofran) 4 mg IVPUSH Q8H PRN PRN Reason: Nausea Last Admin: 10/07/17 10:49 Dose: 4 mg Admin: 10/07/17 03:04 Dose: 4 mg Admin: 10/06/17 13:11 Dose: 4 mg Admin: 10/06/17 06:56 Dose: 4 mg Admin: 10/05/17 22:57 Dose: 4 mg - Plan Plan (Free Text/Narrative):: call by nurse because of bleeding from the wound with saturtion of dressing. This apparently occurred early this am but not notified Pt is not in pain and is havin her period exam VS stable pt is alert no abdominal pain she is hungry the incision is intact and one site shows on surface bleeder than has stopped abdomen is soft and no hematoma ass stable fplan will stop the lovenox and tornado and saline lock the IV and advance diet if any furwill check CBC ther trouble with surface bleeder will need to suture the area for the time will watch
--- NOTE | 2017-10-08 10:18 | PCM.SURGPN ---
- General Info Date of Service: 10/08/17 POD#: 4 - Patient Data Vitals - Most Recent: Last Vital Signs Temp 97.8 F 10/08/17 08:13 Pulse 71 10/08/17 08:13 Resp 20 10/08/17 08:13 BP 93/71 10/08/17 08:13 Pulse Ox 99 10/08/17 08:13 Weight - Most Recent: 65.272 kg I&O - Last 24 Hours: Intake & Output 10/07/17 10/08/17 10/08/17 23:59 07:59 15:59 Intake Total 640 400 Output Total 25 25 Balance 615 375 Lab Results Last 24 Hrs: Laboratory Results - last 24 hr 10/07/17 Range/Units 11:35 WBC 3.94 L (3.98-10.04) K/mm3 RBC 3.24 L (3.98-5.22) M/mm3 Hgb 8.7 L (11.2-15.7) gm/L Hct 27.7 L (34.1-44.9) % MCV 85.5 (79.4-94.8) fl MCH 26.9 (25.6-32.2) pg MCHC 31.4 L (32.2-35.5) g/dl RDW Std Deviation 43.6 (36.4-46.3) fL Plt Count 231 (182-369) K/mm3 MPV 9.2 L (9.4-12.3) fl Neut % (Auto) 57.2 (34.0-71.1) % Lymph % (Auto) 32.2 (19.3-51.7) % Nicholas % (Auto) 9.1 (4.7-12.5) % Eos % (Auto) 1.5 (0.7-5.8) Baso % (Auto) 0.0 L (0.1-1.2) % Neut # (Auto) 2.25 (1.56-6.13) K/mm3 Lymph # (Auto) 1.27 (1.18-3.74) K/mm3 Nicholas # (Auto) 0.36 (0.24-0.36) K/mm3 Eos # (Auto) 0.06 (0.04-0.36) K/mm3 Baso # (Auto) 0.00 L (0.01-0.08) K/mm3 Med Orders - Current: Current Medications Acetaminophen (Tylenol) 650 mg PO Q6H PRN PRN Reason: Pain Last Admin: 10/08/17 10:09 Dose: 650 mg Hydromorphone HCl (Dilaudid) 1 mg IVPUSH Q2HR PRN PRN Reason: Pain Ondansetron HCl (Zofran) 4 mg IVPUSH Q8H PRN PRN Reason: Nausea Last Admin: 10/07/17 10:49 Dose: 4 mg Discontinued Medications Hydrocodone Bitart/Acetaminophen ([place] 325-5 Mg) 1 tab PO Q6H PRN PRN Reason: Pain Last Admin: 10/06/17 22:15 Dose: 1 tab Ampicillin Sodium/Sulbactam Sodium (Unasyn) Confirm Administered Dose 1.5 gm .ROUTE .STK-MED ONE Stop: 10/04/17 11:23 Bisacodyl (Dulcolax) 10 mg RECTAL ONETIME ONE Stop: 10/06/17 13:05 Last Admin: 10/06/17 15:33 Dose: 10 mg Bupivacaine HCl (Marcaine 0.5%) Confirm Administered Dose 30 ml .ROUTE .STK-MED ONE Stop: 10/04/17 09:23 Last Admin: 10/04/17 11:21 Dose: 25 ml Dexamethasone (Dexamethasone) Confirm Administered Dose 20 mg .ROUTE .STK-MED ONE Stop: 10/04/17 08:42 Diphenhydramine HCl (Benadryl) 25 mg IVPUSH Q6H PRN PRN Reason: pruritis Stop: 10/04/17 16:00 Enoxaparin Sodium (Lovenox) 40 mg SUBCUT Q24H JUAN JOSE Last Admin: 10/06/17 15:20 Dose: 40 mg Ephedrine Sulfate (Ephedrine Sulfate) 5 mg IVPUSH ASDIRECTED PRN PRN Reason: Hypotension Stop: 10/04/17 16:00 Fentanyl (Sublimaze) Confirm Administered Dose 250 mcg .ROUTE .STK-MED ONE Stop: 10/04/17 08:45 Fentanyl (Sublimaze) 50 mcg IVPUSH Q5M PRN PRN Reason: Pain Stop: 10/04/17 11:16 Fentanyl (Sublimaze) Confirm Administered Dose 100 mcg .ROUTE .STK-MED ONE Stop: 10/04/17 12:59 Fentanyl (Sublimaze) 50 mcg IVPUSH Q5M PRN PRN Reason: Pain Stop: 10/04/17 18:00 Last Admin: 10/04/17 13:47 Dose: 50 mcg Glycopyrrolate () Confirm Administered Dose 1 mg .ROUTE .STK-MED ONE Stop: 10/04/17 08:48 Hydromorphone HCl (Dilaudid) Confirm Administered Dose 0.5 mg .ROUTE .STK-MED ONE Stop: 10/04/17 08:43 Hydromorphone HCl (Dilaudid) Confirm Administered Dose 0.5 mg .ROUTE .STK-MED ONE Stop: 10/04/17 09:50 Hydromorphone HCl (Dilaudid) 0.5 mg IVPUSH ONETIME PRN PRN Reason: Pain Stop: 10/04/17 11:18 Hydromorphone HCl (Dilaudid) 0.5 mg IVPUSH ONETIME PRN PRN Reason: Pain Stop: 10/04/17 18:00 Last Admin: 10/04/17 13:45 Dose: 0.5 mg Hydromorphone HCl (Dilaudid) Confirm Administered Dose 0.5 mg .ROUTE .STK-MED ONE Stop: 10/04/17 13:43 Last Admin: 10/04/17 15:07 Dose: Not Given Lactated Ringer's (Ringers, Lactated) 1,000 mls @ 125 mls/hr IV ASDIRECTED JUAN JOSE Stop: 10/04/17 23:00 Last Admin: 10/04/17 08:10 Dose: 125 mls/hr Ampicillin Sodium/Sulbactam (Sodium 1.5 gm/ Sodium Chloride) 100 mls @ 200 mls/ hr IV ONETIME ONE Stop: 10/04/17 08:29 Last Admin: 10/04/17 08:10 Dose: 200 mls/hr Lidocaine HCl (Xylocaine-Mpf 1%) Confirm Administered Dose 4 mls @ as directed .ROUTE .STK-MED ONE Stop: 10/04/17 08:42 Lactated Ringer's (Ringers, Lactated) Confirm Administered Dose 1,000 mls @ as directed .ROUTE .STK-MED ONE Stop: 10/04/17 08:42 Phenylephrine HCl 1 mg/ Sodium (Chloride) 10.1 mls @ 1 mls/sec IV TITRATE JUAN JOSE; Protocol Stop: 10/04/17 16:00 Sodium Chloride (Normal Saline) Confirm Administered Dose 100 mls @ as directed .ROUTE .STK-MED ONE Stop: 10/04/17 11:24 Lactated Ringer's (Ringers, Lactated) 1,000 mls @ 100 mls/hr IV ASDIRECTED JUAN JOSE Last Admin: 10/07/17 01:46 Dose: 100 mls/hr Iopamidol (Isovue-300 (61%)) Confirm Administered Dose 50 ml .ROUTE .STK-MED ONE Stop: 10/04/17 09:25 Last Admin: 10/04/17 12:14 Dose: 9 ml Ketorolac Tromethamine (Toradol) Confirm Administered Dose 30 mg .ROUTE .STK- MED ONE Stop: 10/04/17 08:42 Ketorolac Tromethamine (Toradol) 30 mg IVPUSH Q6H PRN PRN Reason: Pain Last Admin: 10/07/17 10:49 Dose: 30 mg Lidocaine/Sodium Bicarbonate (Buffered Lidocaine 1% In Ns 8.4%) 0.25 ml IDERM ONETIME PRN PRN Reason: Prior to IV Start Stop: 10/04/17 18:00 Last Admin: 10/04/17 08:09 Dose: 0.25 ml Midazolam HCl (Versed 1 Mg/Ml) Confirm Administered Dose 2 mg .ROUTE .STK-MED ONE Stop: 10/04/17 08:44 Morphine Sulfate (Morphine) 4 mg IVPUSH Q2H PRN PRN Reason: Pain Neostigmine Methylsulfate (Neostigmine) Confirm Administered Dose 5 mg .ROUTE .STK-MED ONE Stop: 10/04/17 08:48 Ondansetron HCl (Zofran) Confirm Administered Dose 4 mg .ROUTE .STK-MED ONE Stop: 10/04/17 08:42 Ondansetron HCl (Zofran) 4 mg IVPUSH ONETIME PRN PRN Reason: Nausea/Vomiting Stop: 10/04/17 16:00 Ondansetron HCl (Zofran) 4 mg IVPUSH ONETIME PRN PRN Reason: Nausea/Vomiting Stop: 10/04/17 18:00 Propofol (Diprivan 20 Ml) Confirm Administered Dose 200 mg .ROUTE .STK-MED ONE Stop: 10/04/17 08:44 Rocuronium [place] (Zemuron) Confirm Administered Dose 50 mg .ROUTE .STK-MED ONE Stop: 10/04/17 08:42 Scopolamine (Transderm-Scop) 1.5 mg TRDERM ONETIME ONE Stop: 10/04/17 09:11 Last Admin: 10/04/17 09:05 Dose: 1.5 mg Scopolamine (Transderm-Scop) 1.5 mg TRDERM ONETIME ONE Stop: 10/04/17 09:28 Last Admin: 10/04/17 15:11 Dose: Not Given Sodium Chloride (Saline Flush) 10 ml FLUSH ASDIRECTED PRN PRN Reason: Keep Vein Open Stop: 10/04/17 18:00 Sodium Chloride (Normal Saline) Confirm Administered Dose 50 ml .ROUTE .STK-MED ONE Stop: 10/04/17 09:25 Last Admin: 10/04/17 12:14 Dose: 9 ml - Problem List Review Problem List Initiated/Reviewed/Updated: Yes - My Orders Last 24 Hours: Active Orders 24 hr Category Date Time Status Ready for Discharge [RC] PER UNIT ROUTINE Care 10/08/17 10:17 Ordered Post Surgical Soft [Soft Diet] [DIET] Diet 10/07/17 Dinner Active Acetaminophen [Tylenol] Med 10/07/17 11:18 Active 650 mg PO Q6H PRN Medication Orders Acetaminophen (Tylenol) 650 mg PO Q6H PRN PRN Reason: Pain Last Admin: 10/08/17 10:09 Dose: 650 mg Hydromorphone HCl (Dilaudid) 1 mg IVPUSH Q2HR PRN PRN Reason: Pain Ondansetron HCl (Zofran) 4 mg IVPUSH Q8H PRN PRN Reason: Nausea Last Admin: 10/07/17 10:49 Dose: 4 mg Admin: 10/07/17 03:04 Dose: 4 mg Admin: 10/06/17 13:11 Dose: 4 mg Admin: 10/06/17 06:56 Dose: 4 mg Admin: 10/05/17 22:57 Dose: 4 mg - Plan Plan (Free Text/Narrative):: discharge dictated JANAE
--- NOTE | 2017-10-10 09:09 | DISCH ---
ADMISSION DATE: 10/04/2017 DISCHARGE DATE: 10/08/2017 HISTORY OF PRESENT ILLNESS: This is a 27-year-old female who presented to the emergency room with abdominal pain on 09/26/2017. They diagnosed cholelithiasis with impaction in the cystic duct. She was then discharged from the emergency room, and I saw her a week later in the clinic as an elective patient. She has been having pain constantly since that date and was unable to eat. The patient's past medical history was good health. PHYSICAL EXAMINATION: GENERAL: At the time of admission shows alert, cooperative female. VITAL SIGNS: Normal HEENT: Eyes: Sclerae white. Extraocular muscle motion normal. Oral cavity: Healthy mucous membrane with mouth and tongue. Eyes, ears, nose, and throat are unremarkable. NECK: Supple. LUNGS: Clear. HEART: Heart tones are regular rate. ABDOMEN: Shows tenderness in the right upper quadrant. HOSPITAL COURSE: The patient based on the ultrasound showing thickened lu had cholecystitis and cholelithiasis, was brought to the operating room where laparoscopy was done, but open cholecystectomy was necessary because of the advanced state of the disease. This was done along with the intraoperative cholangiogram, and she was admitted to the hospital. On first postoperative day, there was complaint of incisional pain and this was treated with pain medication of Toradol and Dilaudid. The patient next day was started on Lovenox for deep vein thrombosis prophylaxis. Her diet was started. She was ambulated and coughed to deep breath. The next day, the third postoperative day, the patient did have her period, had bleeding along with some bleeding from her incision which was felt to be surface bleeding from a cutaneous vessel. This was treated by stopping her Lovenox and this ceased the bleeding. The patient's hemoglobin was obtained, it was 8.7. The patient at the time of her 4th postoperative day was eating and ambulating without problem. Gigi-Gifford drain was minimal and this was removed. She was felt to have reached maximum hospital benefit and was discharged for followup in the clinic on Tuesday. Discharged on a regular diet and no work. FINAL DIAGNOSES: Discharged with a diagnoses of: 1. Cholecystitis, cholelithiasis, status post laparoscopy and open cholecystectomy. 2. Anemia secondary to blood loss. 3. Her condition improved and diet regular. DISCHARGE MEDICATIONS: Tylenol 650, 1 p.o. q.i.d. prn pain and laxative for constipation. DIET: Regular. ACTIVITY: No work. FOLLOW-UP: Tuesday in the clinic. CONDITION ON DISCHARGE: Improved. CRISTINE /[id number]
== END 2017-10-08 12:42 | disposition home or self-care (01) | DRG 415 ==
LOC: JD.SDS 07:41 → JD.MS 14:35
PROVIDERS: ADMIT Surgery; ATTEND Surgery
PROC: 0FJ44ZZ Inspection of Gallbladder, Percutaneous Endoscopic Approach (ICD-10-PCS; principal; 2017-10-04)
PROC: 0FT40ZZ Resection of Gallbladder, Open Approach (ICD-10-PCS; principal; 2017-10-04)
PROC: BF101ZZ Fluoroscopy of Bile Ducts using Low Osmolar Contrast (ICD-10-PCS; principal; 2017-10-04)
DX: K80.10 Calculus of gallbladder with chronic cholecystitis without obstruction (principal); L76.22 Postprocedural hemorrhage of skin and subcutaneous tissue following other procedure; Y83.8 Other surgical procedures as the cause of abnormal reaction of the patient, or of later complication, without mention of misadventure at the time of the procedure; D50.0 Iron deficiency anemia secondary to blood loss (chronic); K59.00 Constipation, unspecified; G89.29 Other chronic pain; M54.9 Dorsalgia, unspecified; G43.909 Migraine, unspecified, not intractable, without status migrainosus; K21.9 Gastro-esophageal reflux disease without esophagitis; R13.10 Dysphagia, unspecified; F17.200 Nicotine dependence, unspecified, uncomplicated; Z98.84 Bariatric surgery status; K29.70 Gastritis, unspecified, without bleeding
CPT/HCPCS: 00790; 36415; 76000; 76000-26; 81025; 82962; 85025; A9270-GY; J0295; J1100; J1170; J1650; J1885; J2001; J2250; J2405; J2704; J2710; J3010; J3490; J7030; J7120; Q9967

== ENCOUNTER 2018-06-06 21:54 | Emergency (ER) | payer SELFPAY ==
--- NOTE | 2018-06-06 22:22 | EDM.PDOC ---
ED HPI GENERAL MEDICAL PROBLEM - General Chief Complaint: General Stated Complaint: DIZZY HEAD PAIN/PRESSURE Time Seen by Provider: 06/06/18 22:18 Source of Information: Reports: Patient, Old Records, RN Notes Reviewed History Limitations: Reports: No Limitations - History of Present Illness INITIAL COMMENTS - FREE TEXT/NARRATIVE: Patient is a 28-year-old female who presents to the ED for evaluation of head pressure. She states that she has had pressure in her head for over a week but over the last 2 days the pressure has intensified. The patient feels as if she gets very warm to the point where she feels as if she might pass out. She states that being in a hot room makes this pressure worse and the cold seems to help the pressure. She states that it is burning in nature. She states that she had an episode like this around one year ago where she felt some of the same type of pressure and burning sensations she was found to have low potassium at that time she has since been taking potassium supplements as needed and the last one she took was today with some aspirin as well. She states that she has some mild throat pain with this head pressure, head pressure is located mainly on the right hemisphere. She states that she has not had any recent illness, she does not currently work so she has not had any recent sick contacts either. She would rate her headache pain at a 7 out of 10 today. Headache Pain Score (Numeric/FACES): 7 - Related Data Allergies Allergy/AdvReac Type Severity Reaction Status Date / Time No Known Allergies Allergy Verified 06/06/18 22:03 Home Meds: Home Meds Amoxicillin/Clavulanate K [Augmentin 875-125 MG] 1 tab PO BID #14 tablet [Rx] Past Medical History - Past Health History Medical/Surgical History: Denies Medical/Surgical History Gastrointestinal History: Reports: Gastritis, GERD Musculoskeletal History: Reports: Back Pain, Chronic Neurological History: Reports: Headaches, Chronic, Migraines Psychiatric History: Reports: Depression Endocrine/Metabolic History: Reports: Other (See Below) Other Endocrine/Metabolic History: hypoglycemia - Infectious Disease History Infectious Disease History: Reports: Chicken Pox, Measles - Past Surgical History GI Surgical History: Reports: Other (See Below) Other GI Surgeries/Procedures: galbladder removal Social & Family History - Family History Family Medical History: Noncontributory Cardiac: Reports: Hypertension, [place] Endocrine/Metabolic: Reports: Diabetes, type II - Tobacco Use Smoking Status *Q: Never Smoker Second Hand Smoke Exposure: No - Caffeine Use Caffeine Use: Reports: None - Recreational Drug Use Recreational Drug Use: No ED ROS GENERAL - Review of Systems Review Of Systems: See Below HEENT: Reports: Sinus Problem, Throat Pain. Denies: Ear Discharge, Ear Pain, Vertigo, Vision Change Respiratory: Reports: No Symptoms Cardiovascular: Reports: No Symptoms Endocrine: Reports: No Symptoms GI/Abdominal: Reports: No Symptoms : Reports: No Symptoms Musculoskeletal: Reports: No Symptoms Skin: Reports: No Symptoms Neurological: Reports: Headache. Denies: Confusion, Trouble Speaking, Difficulty Walking, Weakness Psychiatric: Reports: No Symptoms Hematologic/Lymphatic: Reports: No Symptoms Immunologic: Reports: No Symptoms ED EXAM, GENERAL - Physical Exam Exam: See Below Exam Limited By: No Limitations General Appearance: Alert, WD/WN, No Apparent Distress Eye Exam: Bilateral Eye: EOMI, Normal Inspection, PERRL Ears: Normal External Exam, Normal Canal, Hearing Grossly Normal, Normal TMs ( Mild serous effusion of the right TM) Nose: Normal Inspection, No Blood, Other (Bilateral injected turbinates.) Throat/Mouth: Normal Inspection, Normal Lips, Normal Teeth, Normal Gums, Normal Oropharynx, Normal Voice, No Airway Compromise Head: Atraumatic, Normocephalic, Sinus Tenderness (Noted over maxilla and frontal sinuses, this was worsened in the R maxilla sinus area) Neck: Normal Inspection, Supple, Non-Tender, Full Range of Motion Respiratory/Chest: No Respiratory Distress, Lungs Clear, Normal Breath Sounds, No Accessory Muscle Use, Chest Non-Tender Cardiovascular: Normal Peripheral Pulses, Regular Rate, Rhythm, No Murmur GI/Abdominal: Normal Bowel Sounds, Soft, Non-Tender, No Distention, No Mass Extremities: Normal Inspection, Normal Range of Motion, Normal Capillary Refill Neurological: Alert, Oriented, Normal Cognition, Normal Gait, No Motor/Sensory Deficits Psychiatric: Normal Affect, Normal Mood Skin Exam: Warm, Dry, Intact, Normal Color (Mild bilateral facial cheek flushing present at time of exam), No Rash Lymphatic: No Adenopathy Course - Vital Signs Last Recorded V/S: Last Vital Signs Temp 99.9 F 06/06/18 22:03 Pulse 95 06/06/18 22:03 Resp 22 H 06/06/18 22:03 BP 128/82 06/06/18 22:03 Pulse Ox 100 06/06/18 22:03 - Orders/Labs/Meds Orders: Active Orders 24 hr Category Date Time Status Peripheral IV Care [RC] . DIRECTED Care 06/06/18 22:34 Ordered Sodium Chloride 0.9% [Normal Saline] 1,000 ml Med 06/06/18 22:45 Active IV ASDIRECTED Sodium Chloride 0.9% [Saline Flush] Med 06/06/18 22:34 Active 10 ml FLUSH ASDIRECTED PRN Peripheral IV Insertion Adult [OM.PC] Routine Oth 06/06/18 22:34 Ordered Medication Orders Sodium Chloride (Normal Saline) 1,000 mls @ 500 mls/hr IV ASDIRECTED JUAN JOSE Last Admin: 06/06/18 22:44 Dose: 500 mls/hr Sodium Chloride (Saline Flush) 10 ml FLUSH ASDIRECTED PRN PRN Reason: Keep Vein Open Last Admin: 06/06/18 22:49 Dose: 10 ml Meds: Medications Generic Name Dose Route Start Last Admin Trade Name Freq PRN Reason Stop Dose Admin Sodium Chloride 1,000 mls @ 500 mls/hr 06/06/18 22:45 06/06/18 22:44 Normal Saline IV 500 mls/hr ASDIRECTED JUAN JOSE Administration Sodium Chloride 10 ml 06/06/18 22:34 06/06/18 22:49 Saline Flush FLUSH 10 ml ASDIRECTED PRN Administration Keep Vein Open Discontinued Medications Generic Name Dose Route Start Last Admin Trade Name Freq PRN Reason Stop Dose Admin Diphenhydramine HCl 25 mg 06/06/18 22:34 06/06/18 22:46 Benadryl IVPUSH 06/06/18 22:35 25 mg ONETIME ONE Administration Ketorolac Tromethamine 30 mg 06/06/18 22:34 06/06/18 22:48 Toradol IVPUSH 06/06/18 22:35 30 mg ONETIME ONE Administration Metoclopramide HCl 10 mg 06/06/18 22:34 06/06/18 22:45 Reglan IVPUSH 06/06/18 22:35 10 mg ONETIME ONE Administration - Re-Assessments/Exams Free Text/Narrative Re-Assessment/Exam: 06/06/18 22:47 Patient presents to the ED for the evaluation of head pressure. The patient appears to have sinusitis, and her head pressure may be due to a sinus headache. I did order 30 mg IV Toradol 10 mg IV Reglan and 25 mg IV Benadryl and IV bolus of fluids for further management of this. I did explain to the patient the management of sinusitis to include sinus nasal rinses, Flonase use, nasal decongestants, and anti-inflammatories for relief of head pressure. The patient agrees and understands to this treatment plan. 06/06/18 23:24 Patient was reassessed at bedside and states that she is feeling much better. And wishes to go home, will discharge her with general recommendations and a prescription for Augmentin as the symptoms have been going on for over one week. Departure - Departure Time of Disposition: 23:17 Disposition: Home, Self-Care 01 Condition: Fair Clinical Impression: Headache Qualifiers: Headache type: tension-type Headache chronicity pattern: acute headache Intractability: not intractable Qualified Code(s): G44.209 - Tension-type headache, unspecified, not intractable Sinusitis Qualifiers: Sinusitis location: maxillary Chronicity: acute Recurrence: non-recurrent Qualified Code(s): J01.00 - Acute maxillary sinusitis, unspecified - Discharge Information *PRESCRIPTION DRUG MONITORING PROGRAM REVIEWED*: No *COPY OF PRESCRIPTION DRUG MONITORING REPORT IN PATIENT CHRISTINA: No Prescriptions: Amoxicillin/Clavulanate K [Augmentin 875-125 MG] 1 tab PO BID #14 tablet Instructions: Sinusitis, Adult, [id number], Sinus Rinse, [id number], Sinus Headache, [id number] Referrals: PCP,Unknown [Primary Care Provider] - Forms: ED Department Discharge Additional Instructions: You have been evaluated in the ED tonight for your headache. This is likely due to a sinusitis, which is an inflammation of the sinuses in your head. Due to the length of your symptoms you have been provided with a prescription for Augmentin which is an antibiotic that should provide further relief of your symptoms. Please take this one tab by mouth twice daily for 7 days. This antibiotic can cause some diarrhea. Please start taking a probiotic with this as this helps to guard against diarrhea symptoms. You may take ibuprofen 600 mg every 6 hours as needed for pain relief, do not exceed over 3200 mg of ibuprofen in a 24-hour time period. You may use [id number] nasal decongestants like phenylephrine for further congestion relief. You may also use nasal sinus rinses as tolerated for nasal congestion relief. You may try Flonase, this is a nasal steroid, this will also help provide further inflammation relief of your sinuses. Please return to the ED if your symptoms change or worsen - My Orders Last 24 Hours: My Active Orders 06/06/18 22:34 Peripheral IV Care [RC] . DIRECTED Sodium Chloride 0.9% [Saline Flush] 10 ml FLUSH ASDIRECTED PRN Peripheral IV Insertion Adult [OM.PC] Routine 06/06/18 22:45 Sodium Chloride 0.9% [Normal Saline] 1,000 ml IV ASDIRECTED - Assessment/Plan Last 24 Hours: My Active Orders 06/06/18 22:34 Peripheral IV Care [RC] . DIRECTED Sodium Chloride 0.9% [Saline Flush] 10 ml FLUSH ASDIRECTED PRN Peripheral IV Insertion Adult [OM.PC] Routine 06/06/18 22:45 Sodium Chloride 0.9% [Normal Saline] 1,000 ml IV ASDIRECTED
[2018-06-06] MEDS ORDERED: diphenhydrAMINE 50 MG/ML SDV IVPUSH ONE (22:34)
[2018-06-06] MEDS ORDERED: Ketorolac 30 MG/ML SDV IVPUSH ONE (22:34)
[2018-06-06] MEDS ORDERED: Sodium Chloride 0.9% 10 ML Syringe FLUSH PRN (22:34)
[2018-06-06] MEDS ORDERED: Metoclopramide 10 MG/2 ML SDV IVPUSH ONE (22:34)
[2018-06-06] MEDS ORDERED: Sodium Chloride 0.9% 1,000 ML IV SCH (22:45)
== END 2018-06-06 23:31 | disposition home or self-care (01) ==
LOC: JD.ED 21:54
DX: G44.209 Tension-type headache, unspecified, not intractable (principal); J01.00 Acute maxillary sinusitis, unspecified
CPT/HCPCS: 96361; 96374; 96375; 99283; J1200; J1885; J2765; J7040; 99284

== ENCOUNTER 2018-09-03 00:12 | Emergency (ER) | payer SELFPAY ==
--- NOTE | 2018-09-03 02:13 | EDM.PDOC ---
ED HPI GENERAL MEDICAL PROBLEM - General Chief Complaint: Headache Stated Complaint: HEADACHE/TREMBLING Time Seen by Provider: 09/03/18 01:39 Source of Information: Reports: Patient, Family (Mother, stepfather), RN Notes Reviewed History Limitations: Reports: No Limitations - History of Present Illness INITIAL COMMENTS - FREE TEXT/NARRATIVE: The patient states that she woke around midnight feeling shaky and tremulous. Her thoughts were racing, and she could not think straight. She developed slurred speech. She developed an occipital headache that radiated down her neck , as well as to her forehead. She is unable to describe the character of her headache, but states that it is worse if she moves her head, including trying to lie supine. She felt weak and dizzy. Her face felt swollen, and she had perioral tingling. Her throat felt tight, and she had difficulty swallowing. She felt short of breath. She had nausea. She had tingling and numbness to her hands and fingers, and when she tried to walk, she felt as if she was walking on rubber legs. She denied having chest pain, but states that she has had chest pain in the past. No recent abdominal pain. No visual changes. No photophobia or phonophobia. The patient states that she has had all of her current symptoms several times ever since she was 11 years old. They improved, but have worsened significantly over the past 6 months. The patient states that she takes NyQuil nearly every night to treat insomnia, and Excedrin when she gets headaches. She also takes potassium chloride about twice a week, because she was told that she has had hypokalemia in the past. Review of prior medical records indicates that the patient has been seen in this ED on several occasions with very similar symptoms, and I note that on several of those occasions, the patient's oxygen saturation was found to be 100 % on room air, and that at the same time, she was hypokalemic. All workups have been negative, including a CT scan of the head and MRI of the brain. The patient has a history of both depression and anxiety, currently untreated. She states that she has a history of migraines, but when asked about how the diagnosis was made, the patient's mother tells me that it was a self-diagnosis. The patient does not have a PCP or [employer]. Headache Pain Score (Numeric/FACES): 8 - Related Data Allergies Allergy/AdvReac Type Severity Reaction Status Date / Time No Known Allergies Allergy Verified 09/03/18 00:21 Home Meds: Home Meds Acetaminophen/Caffeine [Excedrin Tension Headache Cplt] 1 tab PO ASDIRECTED PRN 09/03/18 [History] Past Medical History Gastrointestinal History: Reports: Gastritis (untreated) Neurological History: Reports: Headaches, Chronic Psychiatric History: Reports: Anxiety (untreated), Depression (untreated), Other (See Below) (Insomnia) - Infectious Disease History Infectious Disease History: Reports: Chicken Pox, Measles - Past Surgical History GI Surgical History: Reports: Cholecystectomy (September 2017) Social & Family History - Family History Family Medical History: Noncontributory Cardiac: Reports: Hypertension, [place] Endocrine/Metabolic: Reports: Diabetes, type II - Tobacco Use Smoking Status *Q: Never Smoker - Caffeine Use Caffeine Use: Reports: None - Alcohol Use Alcohol Use History: No - Recreational Drug Use Recreational Drug Use: No - Living Situation & Occupation Living situation: Reports: Single, with Family (Mother + stepfather) Occupation: Unemployed ED ROS GENERAL - Review of Systems Review Of Systems: ROS reveals no pertinent complaints other than HPI. ED EXAM, GENERAL - Physical Exam Exam: See Below Exam Limited By: No Limitations General Appearance: Alert, WD/WN, No Apparent Distress, Anxious Eye Exam: Bilateral Eye: EOMI, Normal Inspection, PERRL Ears: Normal External Exam, Hearing Grossly Normal Nose: Normal Inspection Throat/Mouth: Normal Inspection, Normal Lips, Normal Voice, No Airway Compromise Head: Atraumatic, Normocephalic Neck: Normal Inspection, Full Range of Motion Respiratory/Chest: No Respiratory Distress, Lungs Clear, Normal Breath Sounds, No Accessory Muscle Use Cardiovascular: Normal Peripheral Pulses, Regular Rate, Rhythm, No Edema, No Gallop, No JVD, No Murmur, No Rub Peripheral Pulses: 4+: Radial (L), Radial (R) GI/Abdominal: Normal Bowel Sounds, Soft, Non-Tender, No Organomegaly, No Distention, No Abnormal Bruit, No Mass (Female) Exam: Deferred Rectal (Female) Exam: Deferred Back Exam: Normal Inspection, Full Range of Motion, NT Extremities: Normal Inspection, Normal Range of Motion, No Pedal Edema, Normal Capillary Refill Neurological: Alert, Oriented, Normal Cognition, No Motor/Sensory Deficits Psychiatric: Anxious, Tearful (when became more anxious during exam) Skin Exam: Warm, Dry, Intact, Normal Color, No Rash Course - Vital Signs Last Recorded V/S: Last Vital Signs Temp 37.3 C 09/03/18 00:21 Pulse 97 09/03/18 00:21 Resp 18 09/03/18 00:21 BP 120/77 09/03/18 00:21 Pulse Ox 98 09/03/18 00:21 - Re-Assessments/Exams Free Text/Narrative Re-Assessment/Exam: 09/03/18 02:08 During my examination, the patient became anxious, began crying, and was temporarily unable to proceed with the examination. At that same moment, her oxygen saturation cecelia from 96% to 100% on room air. She confirmed that all of her earlier symptoms were increasing. 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 In this case, her hyperventilation appears to be so severe that the patient is incapacitated. She is unable to work. It is hyperventilation that is responsible for her earlier hypokalemia, because hyperventilation causes respiratory alkalosis, which the kidneys try to compensate for by retaining H+ at the expense of K+. I explained the mechanism of hyperventilation, and why it causes the symptoms that it does, and explained that she will need to be treated with an antidepressant medication, likely an SSRI. I explained that the emergency department does not prescribe SSRIs, because they typically take a few weeks to take effect, and during that time the patient would need to be monitored for side effects, and the dosage may need to be modified, not something that can be done from the emergency department. I explained that some providers may also want to prescribe a bridge benzodiazepine, and that if she is prescribed a benzodiazepine, that it should only be for a relatively short time, because they can be addictive. The patient and her parents expressed understanding. I will refer her to our clinic. Departure - Departure Time of Disposition: 02:13 Disposition: Home, Self-Care 01 Condition: Good Clinical Impression: Hyperventilation syndrome, Anxiety - Discharge Information *PRESCRIPTION DRUG MONITORING PROGRAM REVIEWED*: Not Applicable *COPY OF PRESCRIPTION DRUG MONITORING REPORT IN PATIENT CHRISTINA: Not Applicable Instructions: Hyperventilation Referrals: Fiona Nowak MD [Physician] - Forms: ED Department Discharge Additional Instructions: You were seen in the emergency room for feeling shaky and tremulous, racing thoughts, slurred speech, a headache, feeling weak and dizzy, feeling like your face is swollen, with throat tightness and difficulty swallowing, shortness of breath, nausea, tingling and numbness, and the sensation of walking on rubber legs. Based on your history and physical examination, you are suffering from hyperventilation syndrome due to untreated anxiety. We recommend that you follow-up with Dr. Fiona Nowak, or one of the other providers in the clinic, to discuss treatment options for anxiety. If any other problems, please do not hesitate to return to the ER.
== END 2018-09-03 02:20 | disposition home or self-care (01) ==
LOC: JD.ED 00:12
DX: F45.8 Other somatoform disorders (principal); F41.9 Anxiety disorder, unspecified
CPT/HCPCS: 99282; 99283

== ENCOUNTER 2019-09-23 11:30 | Emergency (ER) | payer MEDICAID ==
[2019-09-23] MEDS ORDERED: Morphine 4 MG/ML Syringe IVPUSH ONE (11:54)
[2019-09-23] MEDS ORDERED: Ondansetron 4 MG/2 ML SDV IVPUSH ONE (11:54)
[2019-09-23] MEDS ORDERED: Sodium Chloride 0.9% 10 ML Syringe FLUSH PRN (11:54)
--- NOTE | 2019-09-23 12:56 | EDM.PDOC ---
ED HPI GENERAL MEDICAL PROBLEM - General Chief Complaint: Abdominal Pain Stated Complaint: ABDOMINAL PAIN Time Seen by Provider: 09/23/19 11:48 Source of Information: Reports: Patient History Limitations: Reports: No Limitations - History of Present Illness INITIAL COMMENTS - FREE TEXT/NARRATIVE: Patient is an unfortunate 29-year-old female who presents emergency department today with complaint of lower abdominal pain. Patient reports that she has a history of endometriosis and this pain is similar to episodes of endometriosis however she has not had her period for the last 3 weeks and generally this pain, once when she has her menses. No vaginal discharge no dysuria no frequency no urgency no back pain no chest pain no fever no chills no nausea no vomiting some mild diarrhea which she reports happens every time she has this pain. No melena no hematochezia labs the pain is a cramping type pain nothing makes the pain better nothing makes the pain worse Bilateral Lower Abdominal Pain Score (Numeric/FACES): 7 - Related Data Allergies Allergy/AdvReac Type Severity Reaction Status Date / Time No Known Allergies Allergy Verified 09/03/18 00:21 Home Meds: Home Meds Acetaminophen with Codeine [Tylenol with Codeine #3 Tablet] 1 each PO Q4H PRN #20 tablet 09/23/19 [Rx] Escitalopram [Lexapro] 20 mg PO DAILY 09/23/19 [History] Potassium Gluconate [Potassium] 99 mg PO DAILY 09/23/19 [History] traZODone HCl [Trazodone HCl] 100 mg PO DAILY 09/23/19 [History] Past Medical History - Past Health History Medical/Surgical History: Denies Medical/Surgical History HEENT History: Reports: None Cardiovascular History: Reports: None Respiratory History: Reports: None Gastrointestinal History: Reports: Gastritis Genitourinary History: Reports: None HEEL SEWER History: Reports: Endometriosis Musculoskeletal History: Reports: Back Pain, Chronic Neurological History: Reports: Headaches, Chronic Psychiatric History: Reports: Anxiety, Depression, Other (See Below) Endocrine/Metabolic History: Reports: Other (See Below) Other Endocrine/Metabolic History: hypoglycemia Hematologic History: Reports: None Immunologic History: Reports: None Oncologic (Cancer) History: Reports: None Dermatologic History: Reports: None - Infectious Disease History Infectious Disease History: Reports: Chicken Pox, Measles - Past Surgical History GI Surgical History: Reports: Cholecystectomy Social & Family History - Family History Family Medical History: Noncontributory Cardiac: Reports: Hypertension, [place] Endocrine/Metabolic: Reports: Diabetes, type II - Tobacco Use Smoking Status *Q: Never Smoker - Caffeine Use Caffeine Use: Reports: None - Recreational Drug Use Recreational Drug Use: No - Living Situation & Occupation Living situation: Reports: Single, with Family (Mother + stepfather) Occupation: Unemployed ED ROS GENERAL - Review of Systems Review Of Systems: See Below Constitutional: Denies: Fever, Chills GI/Abdominal: Reports: Abdominal Pain, Diarrhea. Denies: Melena, Nausea, Vomiting ED EXAM, GI/ABD - Physical Exam Exam: See Below Exam Limited By: No Limitations General Appearance: Alert, WD/WN, Mild Distress Throat/Mouth: Normal Inspection, Normal Lips, Normal Teeth, Normal Gums, Normal Oropharynx, Normal Voice, No Airway Compromise Head: Atraumatic, Normocephalic Neck: Normal Inspection, Supple, Non-Tender, Full Range of Motion Respiratory/Chest: No Respiratory Distress, Lungs Clear, Normal Breath Sounds, No Accessory Muscle Use, Chest Non-Tender Cardiovascular: Normal Peripheral Pulses, Regular Rate, Rhythm, No Edema, No Gallop, No JVD, No Murmur, No Rub GI/Abdominal Exam: Normal Bowel Sounds, Soft, Tender (mild Tenderness to suprapubic and left lower quadrant) Back Exam: Normal Inspection, Full Range of Motion, NT Extremities: Normal Inspection, Normal Range of Motion, Non-Tender, Normal Capillary Refill, No Pedal Edema Neurological: Alert, Oriented Skin Exam: Warm, Dry Course - Vital Signs Last Recorded V/S: Last Vital Signs Temp 97.8 F 09/23/19 11:48 Pulse 92 09/23/19 11:48 Resp 20 09/23/19 11:48 BP 116/79 09/23/19 11:48 Pulse Ox 97 09/23/19 11:48 - Orders/Labs/Meds Orders: Active Orders 24 hr Category Date Time Status UA RFX ALFRED AND CULT IF INDIC [URIN] Stat Lab 09/23/19 11:54 Ordered Sodium Chloride 0.9% [Saline Flush] Med 09/23/19 11:54 Active 10 ml FLUSH ASDIRECTED PRN Saline Lock Insert [OM.PC] Stat Oth 09/23/19 11:54 Ordered Medication Orders Sodium Chloride (Saline Flush) 10 ml FLUSH ASDIRECTED PRN PRN Reason: Keep Vein Open Labs: Laboratory Tests 09/23/19 09/23/19 09/23/19 Range/Units 12:11 12:11 12:11 WBC 7.19 (3.98-10.04) K/mm3 RBC 4.70 (3.98-5.22) M/mm3 Hgb 12.8 (11.2-15.7) gm/dl Hct 39.9 (34.1-44.9) % MCV 84.9 (79.4-94.8) fl MCH 27.2 (25.6-32.2) pg MCHC 32.1 L (32.2-35.5) g/dl RDW Std Deviation 42.2 (36.4-46.3) fL Plt Count 287 (182-369) K/mm3 MPV 9.1 L (9.4-12.3) fl Neut % (Auto) 68.2 (34.0-71.1) % Lymph % (Auto) 23.4 (19.3-51.7) % [place] % (Auto) 6.8 (4.7-12.5) % Eos % (Auto) 1.4 (0.7-5.8) Baso % (Auto) 0.1 (0.1-1.2) % Neut # (Auto) 4.90 (1.56-6.13) K/mm3 Lymph # (Auto) 1.68 (1.18-3.74) K/mm3 [place] # (Auto) 0.49 H (0.24-0.36) K/mm3 Eos # (Auto) 0.10 (0.04-0.36) K/mm3 Baso # (Auto) 0.01 (0.01-0.08) K/mm3 Sodium 140 (136-145) mEq/L Potassium 3.7 (3.5-5.1) mEq/L Chloride 105 (98-107) mEq/L Carbon Dioxide 26 (21-32) mEq/L Anion Gap 12.7 (5-15) BUN 7 (7-18) mg/dL Creatinine 0.7 (0.55-1.02) mg/dL Est Cr Clr Drug Dosing 100.55 mL/min Estimated GFR (MDRD) > 60 (>60) mL/min BUN/Creatinine Ratio 10.0 L (14-18) Glucose 138 H (74-106) mg/dL Calcium 8.8 (8.5-10.1) mg/dL Total Bilirubin 0.2 (0.2-1.0) mg/dL AST 20 (15-37) U/L ALT 24 (14-59) U/L Alkaline Phosphatase 69 (46-116) U/L Total Protein 7.3 (6.4-8.2) g/dl Albumin 3.5 (3.4-5.0) g/dl Globulin 3.8 gm/dL Albumin/Globulin Ratio 0.9 L (1-2) Lipase 133 (73-393) U/L HCG, Qual Negative (NEGATIVE) Meds: Medications Generic Name Dose Route Start Last Admin Trade Name Freq PRN Reason Stop Dose Admin Sodium Chloride 10 ml 09/23/19 11:54 Saline Flush FLUSH ASDIRECTED PRN Keep Vein Open Discontinued Medications Generic Name Dose Route Start Last Admin Trade Name Freq PRN Reason Stop Dose Admin Morphine Sulfate 4 mg 09/23/19 11:54 09/23/19 12:19 Morphine IVPUSH 09/23/19 11:55 4 mg ONETIME ONE Administration Ondansetron HCl 4 mg 09/23/19 11:54 09/23/19 12:18 Zofran IVPUSH 09/23/19 11:55 4 mg ONETIME ONE Administration - Radiology Interpretation Free Text/Narrative:: Pelvic ultrasound "impression: #1 no abnormalities identified on pelvic ultrasound" - Re-Assessments/Exams Free Text/Narrative Re-Assessment/Exam: 09/23/19 13:06 Work-up today is very reassuring will discharge to home and have patient follow- up outpatient with their PCP Departure - Departure Time of Disposition: 13:06 Disposition: Home, Self-Care 01 Condition: Good Clinical Impression: Pelvic pain - Discharge Information *PRESCRIPTION DRUG MONITORING PROGRAM REVIEWED*: Yes *COPY OF PRESCRIPTION DRUG MONITORING REPORT IN PATIENT CHRISTINA: No Prescriptions: Acetaminophen with Codeine [Tylenol with Codeine #3 Tablet] 1 each PO Q4H PRN #20 tablet PRN Reason: Pain Referrals: Becki Day PA-C [Primary Care Provider] - Forms: ED Department Discharge Additional Instructions: Home, rest, return as needed for worsening condition Sepsis Event Note (ED) - Evaluation Sepsis Screening Result: No Definite Risk - Focused Exam Vital Signs: Vital Signs Temp Pulse Resp BP Pulse Ox 09/23/19 11:48 97.8 F 92 20 116/79 97 - My Orders Last 24 Hours: My Active Orders 09/23/19 11:54 UA RFX ALFRED AND CULT IF INDIC [URIN] Stat Sodium Chloride 0.9% [Saline Flush] 10 ml FLUSH ASDIRECTED PRN Saline Lock Insert [OM.PC] Stat - Assessment/Plan Last 24 Hours: My Active Orders 09/23/19 11:54 UA RFX ALFRED AND CULT IF INDIC [URIN] Stat Sodium Chloride 0.9% [Saline Flush] 10 ml FLUSH ASDIRECTED PRN Saline Lock Insert [OM.PC] Stat
--- NOTE | 2019-09-23 13:00 | US ---
Pelvic ultrasound: Multiple real-time images were obtained transabdominally. Patient refused transvaginal imaging. Uterus is anteverted. No myometrial abnormality is appreciated. Endometrial thickness is 1.1 cm. Follicles are noted within both ovaries. No larger cyst or solid abnormality is seen. No free fluid is appreciated. Measurements: Uterus: Length 7.0 cm, AP height 3.9 cm,transverse width 7.9 cm Right ovary: 3.7 x 2.1 x 1.9 cm Left ovary: 3.7 x 2.2 x 3.2 cm Impression: 1. No abnormality is identified on pelvic ultrasound exam. Diagnostic code #1 This report was dictated in MDT
== END 2019-09-23 13:21 | disposition home or self-care (01) ==
LOC: JD.ED 11:30
DX: R10.2 Pelvic and perineal pain (principal); F41.9 Anxiety disorder, unspecified; F32.9 Major depressive disorder, single episode, unspecified; Z79.899 Other long term (current) drug therapy
CPT/HCPCS: 36415; 76857; 80053; 83690; 84703; 85025; 96374; 96375; 99284; J2270; J2405

== ENCOUNTER 2022-04-24 01:40 | Emergency (ER) | payer MEDICAID ==
[2022-04-24] MEDS ORDERED: Sodium Chloride 0.9% 10 ML Syringe FLUSH PRN (02:13)
[2022-04-24] MEDS ORDERED: Ondansetron 4 MG/2 ML SDV IVPUSH ONE ×2 (02:20→05:17)
[2022-04-24] MEDS ORDERED: HYDROmorphone 0.5 MG/0.5 ML Syringe IVPUSH ONE (02:20)
[2022-04-24] MEDS ORDERED: Sodium Chloride 0.9% 1,000 ML IV SCH (02:30)
[2022-04-24 03:11] LABS: ESTIMATED GFR 99 mL/min (>60)
[2022-04-24] MEDS ORDERED: Levofloxacin/Dextrose 5%-Water 500 MG in Premix Bag 1 BAG IV ONE (04:04)
== END 2022-04-24 06:30 | disposition home or self-care (01) ==
LOC: JD.ED 01:40
DX: R10.9 Unspecified abdominal pain (principal); R11.10 Vomiting, unspecified; R19.7 Diarrhea, unspecified
CPT/HCPCS: 36415; 80053; 84702; 85007; 85027; 86140; 96361; 96365; 96375; 96376; 99284; J1956; J2405; J3490; J7030; 99283; J1170

== ENCOUNTER 2022-07-01 08:29 | Emergency (ER) | payer MEDICAID | END 2022-07-01 11:13 | disposition home or self-care (01) | LOC: JD.ED 08:29 | DX: F41.0 Panic disorder [episodic paroxysmal anxiety] (principal); N83.201 Unspecified ovarian cyst, right side; N64.4 Mastodynia; Z86.16 Personal history of COVID-19 | CPT/HCPCS: 74176; 74176-26; 81001; 81025; 99283; 99285 ==

== ENCOUNTER 2022-07-13 06:53 | Day surgery (SDC) | payer MEDICAID ==
[~2022-07-13 06:53] MED LIST changes: +Scopolamine 1.5 MG Transdermal Patch TRDERM PRN; +Sodium Chloride 0.9% 10 ML Syringe FLUSH SCH
[2022-07-13] MEDS ORDERED: Midazolam 1 MG/ML 2 ML SDV ONE (07:06)
[2022-07-13] MEDS ORDERED: Propofol 200 MG/20 ML SDV ONE ×2 (07:07)
[2022-07-13] MEDS ORDERED: Lidocaine 1% 2 ML ONE (07:08)
[2022-07-13] MEDS ORDERED: Rocuronium 50 MG/5 ML Vial ONE ×2 (07:08→11:16)
[2022-07-13] MEDS ORDERED: fentaNYL 250 MCG/5 ML SDV ONE (07:08)
[2022-07-13] MEDS ORDERED: Bupivacaine 0.5% 30 ML SDV ONE (07:17)
[2022-07-13] MEDS ORDERED: HYDROmorphone 0.5 MG/0.5 ML Syringe IVPUSH PRN (07:39)
[2022-07-13] MEDS ORDERED: fentaNYL 100 MCG/2 ML SDV IVPUSH PRN (07:39)
[2022-07-13] MEDS ORDERED: Ondansetron 4 MG/2 ML SDV IVPUSH PRN (07:39)
[2022-07-13] MEDS ORDERED: ePHEDrine 50 MG/ML SDV ONE (08:11)
[2022-07-13] MEDS ORDERED: Dexamethasone 4 MG/ML 5 ML MDV ONE (08:15)
[2022-07-13] MEDS ORDERED: Sugammadex Sodium 200 MG/2 ML VIAL ONE (08:41)
[2022-07-13] MEDS ORDERED: Ondansetron 4 MG/2 ML SDV ONE (08:44)
[2022-07-13] MEDS ORDERED: Ketorolac 30 MG/ML SDV ONE (08:45)
[2022-07-13] MEDS ORDERED: Acetaminophen/oxyCODONE 325-5 MG Tab PO ONE (10:44)
[2022-07-13] MEDS ORDERED: Ondansetron 4 MG Tab.DIS PO ONE (12:24)
== END 2022-07-13 13:00 | disposition home or self-care (01) ==
LOC: JD.SDS 06:53
PROVIDERS: ATTEND Obstetrics & Gynecology
DX: N80.121 Deep endometriosis of right ovary (principal); N83.8 Other noninflammatory disorders of ovary, fallopian tube and broad ligament; N83.11 Corpus luteum cyst of right ovary; N80.329 Endometriosis of the posterior cul-de-sac, unspecified depth; F41.9 Anxiety disorder, unspecified; F32.A Depression, unspecified; G43.909 Migraine, unspecified, not intractable, without status migrainosus; Z79.899 Other long term (current) drug therapy; Z90.49 Acquired absence of other specified parts of digestive tract
CPT/HCPCS: 58662; 81003; A9270; J1100; J1885; J2250; J2405; J2704; J3010; J3490; J7120; 00840

== ENCOUNTER 2023-08-21 07:28 | Emergency (ER) | payer MEDICAID ==
[2023-08-21] MEDS: Dextrose 5%-0.9% NaCl 1,000 ML IV SCH (08:20)
[2023-08-21] MEDS: Metoclopramide 10 MG/2 ML SDV IVPUSH ONE (08:20)
[2023-08-21] MEDS: diphenhydrAMINE 50 MG/ML SDV IVPUSH ONE (08:26)
[2023-08-21] MEDS: HYDROmorphone 1 MG/ML Syringe IVPUSH ONE (08:26)
== END 2023-08-21 09:40 | disposition home or self-care (01) ==
LOC: JD.ED 07:28
DX: R51.9 Headache, unspecified (principal); G89.29 Other chronic pain; Z79.899 Other long term (current) drug therapy; Z79.82 Long term (current) use of aspirin; Z86.16 Personal history of COVID-19; Z90.49 Acquired absence of other specified parts of digestive tract
CPT/HCPCS: 96361; 96374; 96375; 99283; J1170; J1200; J2765; J7042; 99284